=== PATIENT | male | born 1955 | race Caucasian/White ===

== ENCOUNTER 2016-09-11 10:20 | Inpatient (IN) | payer OTHER ==
[~2016-09-11] VITALS: Ht 172.7 cm; Wt 88.5 kg
[~2016-09-11 10:20] MED LIST: ALBUTEROL0.09 MG/A1 INH; ATORVASTATIN CA40 MG PO; AUGMENTIN 875-1 EACH PO; BENTYL10 M1 PO; CHOLESTYRAMINE L4 GM PO; CIALIS20 M1; DILAUDID2 M1 PO; GABAPENTIN100 MG; GABAPENTIN600 M1 PO; GABAPENTIN600 MG PO; HYDROMORPHONE HC2 M1 PO; IMODIUM A-D2 M1 PO; LIPITOR40 M1 PO; LISINOPRIL10 MG PO; LISINOPRIL20 M1 PO; LISINOPRIL20 MG PO; MULTIPLE VITAM1 EAC2 PO; MULTIVITAMIN1 TAB PO; NEURONTIN600 MG PO; PERCOCET 10-321 EACH PO; PERCOCET 325 MG1 TA2 PO; PREDNISONE10 MG PO; PRINIVIL 5MG5 MG; PROMETHAZINE HC25 M3 PO; ROBITUSSIN W/CO10 ML PO; STRATTERA80 MG PO; TESSALON PERLE100 MG PO; TOPAMAX 100MG100 MG PO; TOPAMAX100 M1 PO; TOPAMAX25 MG; TOPIRAMATE100 MG PO; TRAZODONE HCL150 MG PO; TRAZODONE HCL300 M1 PO; TRAZODONE150 MG PO; TRAZODONE50 MG PO; VALIUM10 M1 PO; VIAGRA100 M1; ZITHROMAX Z-PA250 M1 PO; ZOFRAN4 M2 PO; ZOLPIDEM TARTRA10 M1 PO
--- NOTE | 2016-09-11 10:27 | NUR ---
PT PRESENTS TO ER FOR SHARP ABDOMINAL PAIN THAT HAS BEEN ON AN OFF SINCE SATURDAY. PT ALSO C/O OF DIARRHEA AND NAUSEA SINCE YESTERDAY. PT STATES HE HAS A HX OF DIVERTICULITIS AND IS CONCERNED HE MIGHT HAVE A BLOCKAGE PT CURRENTLY BEING TREATED FOR PROSTATE CANCER.
--- NOTE | 2016-09-11 11:16 | NUR ---
APPRECIATE TRIAGE NOTE. PT AMBULATORY TO ROOM 16. PA STUDENT TO BEDSIDE FOR EVAL.
--- NOTE | 2016-09-11 11:29 | ED GI/GU/ABDOMINAL COMPLAINT ---
History of Present Illness General Chief Complaint: Abdominal Pain/Flank Pain Stated Complaint: ABD PAIN X 5 DAYS Source: patient, family Exam Limitations: no limitations Vital Signs & Intake/Output Vital Signs & Intake/Output Vital Signs Date Time Temp Pulse Resp B/P Pulse O2 O2 Flow FiO2 Ox Delivery Rate 09/11 1604 97.7 77 18 157/82 96 Room Air 09/11 1402 97.7 89 18 111/66 96 Room Air 09/11 1028 97.0 93 20 123/86 98 Room Air Allergies Coded Allergies: No Known Allergies (09/11/16) Reconcile Medications Atorvastatin Calcium (Lipitor) 40 MG TABLET 1 TAB PO DAILY CHOLESTEROL ( Reported) Gabapentin 600 MG TABLET 2 TAB PO TID NERVE PAIN (Reported) Lisinopril 20 MG TABLET 1 TAB PO DAILY BP (Reported) Trazodone HCl 300 MG TABLET 1 TAB PO QPM SLEEP (Reported) Zolpidem Tartrate 10 MG TABLET 1 TAB PO QPM PRN SLEEP (Reported) Triage Note: PT PRESENTS TO ER FOR SHARP ABDOMINAL PAIN THAT HAS BEEN ON AN OFF SINCE SATURDAY. PT ALSO C/O OF DIARRHEA AND NAUSEA SINCE YESTERDAY. PT STATES HE HAS A HX OF DIVERTICULITIS AND IS CONCERNED HE MIGHT HAVE A BLOCKAGE Triage Nurses Notes Reviewed? 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 Pain is sharp and stabbing and nonradiating. Palpation and movement makes it worse. Positive nausea and dry heaving but no vomiting. Denies taking anything at home to help with pain. No recent travel or sick contacts. Per her roommate he had a tactile fever last night. He reports that he was constipated initially before the pain started and then the diarrhea started last night. Approximately 7 episodes of loose brown stool that is watery. Denies blood in the stool. Denies any exposure to the flu. Past History Travel History Traveled to [place] past 21 day No Medical History Any Pertinent Medical History? see below for history Neurological: NONE EENT: NONE Cardiovascular: hypertension, hyperlipidemia Respiratory: NONE Gastrointestinal: colonoscopy in 2015- 2 tubular adenomas, random biopsies were negative for microscopic colitis Hepatic: NONE Renal: NONE Musculoskeletal: PROST. 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 No Review of Systems Review of Systems Constitutional: Reports: no symptoms. Comments Review of systems: See HPI, All other systems negative. Constitutional, no chills fever or weight loss HEENT: No visual changes no sore throat no congestion Cardiovascular: No chest pain ,palpitation Skin, no jaundice no rashes Respiratory: No dyspnea cough sputum or hemoptysis GI: no vomiting : No dysuria No hematuria Muscle skeletal: no back pain, no neck pain, Neurologic: No numbness no confusion Psych: No stress anxiety Immunology: No splenectomy or history of AIDS Physical Exam Physical Exam General Appearance: well developed/nourished, no apparent distress, alert, awake , comfortable Gastrointestinal: guarding, rebound, UPPER ACTIVE BOWEL SOUNDS THROUGHOUT Comments: Well-developed well-nourished person in no acute distress HEENT: Pupils equally round and reactive to light and accommodation. Nose is atraumatic. Neck: Normal inspection Back: Nontender, no CVA tenderness. Cardiovascular: Regular rate and rhythms no murmurs rubs or gallops, normal JVP Respiratory: Chest nontender. No respiratory distress.breath sounds clear to auscultation bilaterally Abdomen: Slightly distended, tenderness to palpation in the left lower quadrant, positive guarding and rebound tenderness. Midline surgical scar going through umbilicus, also a centimeter old surgical scar in the right lower quadrant. No palpable mass. 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 Left lower leg prosthesis. Neuro: Alert oriented x3 Skin: No appreciable rash on exposed skin, skin is warm and dry. Psych: Mood and affect is normal, memory and judgment is normal. Core Measures ACS in differential dx? No Severe Sepsis Present: No Septic Shock Present: No Progress Differential Diagnosis: DIVERTICULITIS, DIVERTICULOSIS, CONSTIPATION, METASTASIS , SMALL BOWEL OBSTRUCTION, COLITIS, INFLUENZA Plan of Care: Orders Procedure Date/time Status Patient Data 09/[address] in observation 09/11 1714 Active Add-on Test (ER Only) 09/11 1713 Active LACTIC ACID 09/11 1456 Complete LIPASE 09/11 1142 Complete AMYLASE 09/11 1142 Complete URINALYSIS 09/11 1131 Complete LACTIC ACID 09/11 1131 Complete COMPREHENSIVE METABOLIC PANEL 09/11 1131 Complete CBC WITHOUT DIFFERENTIAL 09/11 1131 Complete Current Medications Sig/Anthony Start time Last Medication Dose Stop Time Status Admin Morphine Sulfate 4 MG ONCE ONE 09/11 1145 CAN (Morphine) 09/11 1146 Laboratory Tests 09/11/16 1536: Lactic Acid 0.9 09/11/16 1431: Lactic Acid Cancelled 09/11/16 1222: Urine Color YEL, Urine Clarity CLEAR, Urine pH 6.5, Ur Specific [place] 1.010, Urine Protein NEG, Urine Ketones NEG, Urine Nitrite NEG, Urine Bilirubin NEG, Urine Urobilinogen 0.2, Ur Leukocyte Esterase NEG, Ur Microscopic EXAM NOT REQUIRED, Urine Hemoglobin NEG, Urine Glucose NEG 09/11/16 1142: Anion Gap 9, Estimated GFR > 60, BUN/Creatinine Ratio 29.1 H, Glucose 116 H, Lactic Acid 0.9, Calcium 9.4, Total Bilirubin 0.5, AST 24, ALT 38, Alkaline Phosphatase 55, Total Protein 6.7, Albumin 3.8, Globulin 2.9, Albumin/Globulin Ratio 1.3, Amylase 70, Lipase 74, CBC w Diff NO MAN DIFF REQ, RBC 4.63 L, MCV 80.7, MCH 26.9 L, RDW 13.9, MPV 9.4, Gran % 69.3, Lymphocytes % 20.4 L, Monocytes % 7.5, Eosinophils % 2.5, Basophils % 0.3, Absolute Granulocytes 5.4, Absolute Lymphocytes 1.6, Absolute Monocytes 0.6, Absolute Eosinophils 0.2, Absolute Basophils 0, PUBS MCHC 33.3 Diagnostic Imaging: Viewed by Me: CT Scan. Discussed w/RAD: CT Scan. Radiology Impression: PATIENT: TAYLOR MCCABE JR PRESENT AGE: 61 PATIENT ACCOUNT NO: [id number] : 56 LOCATION: [facility] ORDERING PHYSICIAN: QUOC DEUTSCH SERVICE DATE: 09/11/16 EXAM TYPE: CAT - CT ABD & PELVIS W IV CONTRAST EXAMINATION: CT ABDOMEN AND PELVIS WITH CONTRAST CLINICAL INFORMATION: Left lower quadrant abdominal pain. Evaluate for small bowel obstruction or diverticulitis. COMPARISON: CT of abdomen pelvis from 02/09/2016. TECHNIQUE: Multidetector volumetric imaging was performed of the abdomen and pelvis before and after the IV administration of 94 mL of of Optiray 320 intravenous contrast. Sagittal and coronal reformatted images were obtained on the technologist's workstation. DLP: 594 mGy-cm. FINDINGS: LUNG BASES: Cardiomegaly and coronary artery atherosclerotic calcification. No pulmonary edema or pleural effusion. The patchy inflammatory/infectious opacities of the lung bases on 02/09/2016 have subsequently resolved. LIVER, GALLBLADDER, AND BILIARY TREE: Liver has normal size and contour. There are a few scattered hypodense foci of < 6 mm size that are likely cysts. No suspicious hepatic lesion or intrahepatic bile duct dilatation. Gallbladder is normal. PANCREAS: There is atrophy with partial fatty replacement of the pancreas. No pancreatic ductal dilatation or peripancreatic edema. SPLEEN: Unremarkable. ADRENAL GLANDS: Unremarkable. KIDNEYS AND URETERS: Kidneys enhance symmetrically and there is no hydronephrosis or perinephric edema. A 0.4 cm calyceal stone is present within the upper pole of the left kidney. There are a few small bilateral renal cortical cysts. The ureters are normal in caliber. BLADDER: No acute findings. No bladder calculi. GASTROINTESTINAL TRACT: Loops of bowel are normal in size. There are diverticula of the distal descending and sigmoid colon without diverticulitis. An intact rectosigmoid anastomosis is present within the pelvis. No ascites or pneumoperitoneum. ABDOMINAL WALL: There is midline mesh from prior ventral hernia repair. No recurrent hernia. There is possible tethering of small bowel to the mesh. Small bowel is closely juxtaposed to the mesh on this exam as well as on the prior exam of 02/09/2016. LYMPH NODES: No pathologic sized lymph nodes within the abdomen or pelvis. VASCULAR: There is extensive atherosclerotic calcification of the abdominal aorta and iliac arteries without aneurysm. Inferior vena cava is normal. The splenic, mesenteric , portal and hepatic veins are patent. PELVIC VISCERA: Prostate gland is unremarkable. No pelvic free fluid. OSSEOUS STRUCTURES: No aggressive bone lesions. No acute findings within the chronically degenerated lumbar spine. At L5-S1, there is chronic vacuum disc degeneration, discogenic vertebral sclerosis , disc bulge and osteophyte formation. IMPRESSION: 1. Colonic diverticulosis without diverticulitis. 2. Small bowel remains closely juxtaposed to the mesh in the midline abdominal wall. Although there might be tethering of small bowel to the mesh, there is no acute small bowel inflammation or obstruction. 3. 0.4 cm nonobstructing calyceal stone is present within the upper pole of the left kidney., PATIENT: TAYLOR MCCABE JR PRESENT AGE: 61 PATIENT ACCOUNT NO: [id number] : 56 LOCATION: [facility] ORDERING PHYSICIAN: QUOC DEUTSCH SERVICE DATE: 09/11/16 EXAM TYPE: US - US-ABD/PELV ORGAN DOPPLER EXAMINATION: US ABDOMEN AND PELVIS CLINICAL INFORMATION: Severe lower abdominal pain. COMPARISON: CT of abdomen pelvis from 09/11/2016. TECHNIQUE: Sonographic imaging of the left lower quadrant was performed through the region of pain using a linear 9 MHz transducer. FINDINGS: Deep to the examined left lower abdominal wall, there is nondilated small bowel measuring up to 2 cm diameter. The fish technologist reports that the evaluation was suboptimal due to patient discomfort and patient movement during the test. The visualized small bowel in the left abdomen showed no mural edema or hyperemia on color Doppler imaging. No free fluid within the abdominal cavity. IMPRESSION: No acute sonographic findings in the region of patient's pain. DICTATED BY: LISA STEPHENS MD DATE/TIME DICTATED:09/11/161553 SOCIAL WORK NURSE:TOMMIE DATE/ TIME TRANSCRIBED:09/11/161553 CONFIDENTIAL, DO NOT COPY WITHOUT APPROPRIATE AUTHORIZATION. <Electronically signed in Other Vendor System> SIGNED BY: LISA STEPHENS MD 09/11/16 4789 Initial ED EKG: none Comments: 09/11/2016 11:43:33 AM patient appears uncomfortable, vital stable, patient does have significant tenderness in left lower quadrant with moderate guarding and rebound tenderness present. Patient will go for CT abdomen TO RULE OUT SBO secondary to history of SBO one year ago. Patient medicated with Dilaudid at patient request. Patient reports that morphine doesn't work. IV fluids 1 L initiated. 4 mg Zofran given for nausea. 09/11/2016 2:13:58 PM at this time patient still feeling significant pain in the left lower quadrant despite negative CT scan. Patient was informed of all lab work results. Spoke with regarding this patient. He is recommending that we consult with the surgical physician industrial hire sales assistant to come and evaluate the patient. With patient requiring excessive doses of IV pain medication in small tethering of bowel on CT scan. No signs of SBO. 09/11/2016 6:07:36 PM patient is still requiring IV pain medications to control pain. Patient will be admitted for intractable pain. Departure Departure Time of Disposition: 172 Disposition: STILL A PATIENT Condition: Stable Clinical Impression Primary Impression: Intractable abdominal pain Secondary Impressions: Superficial thrombophlebitis Qualifiers: Superficial thrombophlebitis-Involved body area: other site Qualified Code: I80.8 - Phlebitis and thrombophlebitis of other sites Referrals: KELLI SILVA MD (PCP/Family) Departure Forms: Customer Survey General Discharge Information Observation Note Spoke With: KELLI SILVA MD Physician Advisor Notified: TIMOTEO ANDERSON,SAMIA Cedillo Patient In: Non-ED OBS Care Area Rationale for Observation: My rational for observation is as follows . Patient requiring several doses of IV pain medication, IV anti-inflammatories, warm compresses, serial abdominal exams. Discharged at this time medically harmful.
[2016-09-11 11:53] LABS: ABSOLUTE BASOPHIL COUNT 0 /CUMM (0.0-0.2); ABSOLUTE EOSINOPHIL COUNT 0.2 /CUMM (0.0-0.7); ABSOLUTE GRANULOCYTE CT 5.4 /CUMM (1.4-6.5); ABSOLUTE LYMPH COUNT 1.6 /CUMM (1.2-3.4); ABSOLUTE MONOCYTE COUNT 0.6 /CUMM (0.10-0.60); BASOPHIL % 0.3 % (0.0-2.0); EOSINOPHIL % 2.5 % (0-5); GRANULOCYTE % 69.3 % (42.2-75.2); HEMATOCRIT 37.3 % (42-52); MEAN CORPUSCULAR HGB 26.9 PG (27.0-31.0); MEAN CORPUSCULAR HGB CONC 33.3 G/DL (33.0-37.0); MEAN CORPUSCULAR VOLUME 80.7 FL (80.0-94.0); MEAN PLATELET VOLUME 9.4 FL (7.4-10.4); PLATELET COUNT 170 /CUMM (130-400); RBC DISTRIBUTION WIDTH 13.9 % (11.5-14.5); RED BLOOD CELL CT 4.63 /CUMM (4.70-6.10); WHITE BLOOD CELL COUNT 7.7 /CUMM (4.8-10.8)
--- NOTE | 2016-09-11 11:55 | NUR ---
IV ESTABLISHED #20 TO . MEDICATED PER EMAR.
--- NOTE | 2016-09-11 12:05 | NUR ---
PT REPORTS SHARP STABBING PAIN TO LLQ. PT UNABLE TO LAY STILL ON STRETCHER MOANING IN PAIN. SECOND DOSE OF DILAUDID 1MG ADMINISTERED AT THIS TIME. PT REPORTS RELIEF FROM SHARP STABBING PAIN. PT AWAITING LAB RESULTS FOR CAT SCAN.
--- NOTE | 2016-09-11 12:28 | NUR ---
URINE TRIO SENT.
--- NOTE | 2016-09-11 13:06 | NUR ---
PT TO CAT SCAN VIA STRETCHER.
--- NOTE | 2016-09-11 13:39 | CT SCAN REPORT ---
EXAMINATION: CT ABDOMEN AND PELVIS WITH CONTRAST CLINICAL INFORMATION: Left lower quadrant abdominal pain. Evaluate for small bowel obstruction or diverticulitis. COMPARISON: CT of abdomen pelvis from 02/09/2016. TECHNIQUE: Multidetector volumetric imaging was performed of the abdomen and pelvis before and after the IV administration of 94 mL of of Optiray 320 intravenous contrast. Sagittal and coronal reformatted images were obtained on the technologist's workstation. DLP: 594 mGy-cm. FINDINGS: LUNG BASES: Cardiomegaly and coronary artery atherosclerotic calcification. No pulmonary edema or pleural effusion. The patchy inflammatory/infectious opacities of the lung bases on 02/09/2016 have subsequently resolved. LIVER, GALLBLADDER, AND BILIARY TREE: Liver has normal size and contour. There are a few scattered hypodense foci of < 6 mm size that are likely cysts. No suspicious hepatic lesion or intrahepatic bile duct dilatation. Gallbladder is normal. PANCREAS: There is atrophy with partial fatty replacement of the pancreas. No pancreatic ductal dilatation or peripancreatic edema. SPLEEN: Unremarkable. ADRENAL GLANDS: Unremarkable. KIDNEYS AND URETERS: Kidneys enhance symmetrically and there is no hydronephrosis or perinephric edema. A 0.4 cm calyceal stone is present within the upper pole of the left kidney. There are a few small bilateral renal cortical cysts. The ureters are normal in caliber. BLADDER: No acute findings. No bladder calculi. GASTROINTESTINAL TRACT: Loops of bowel are normal in size. There are diverticula of the distal descending and sigmoid colon without diverticulitis. An intact rectosigmoid anastomosis is present within the pelvis. No ascites or pneumoperitoneum. ABDOMINAL WALL: There is midline mesh from prior ventral hernia repair. No recurrent hernia. There is possible tethering of small bowel to the mesh. Small bowel is closely juxtaposed to the mesh on this exam as well as on the prior exam of 02/09/2016. LYMPH NODES: No pathologic sized lymph nodes within the abdomen or pelvis. VASCULAR: There is extensive atherosclerotic calcification of the abdominal aorta and iliac arteries without aneurysm. Inferior vena cava is normal. The splenic, mesenteric, portal and hepatic veins are patent. PELVIC VISCERA: Prostate gland is unremarkable. No pelvic free fluid. OSSEOUS STRUCTURES: No aggressive bone lesions. No acute findings within the chronically degenerated lumbar spine. At L5-S1, there is chronic vacuum disc degeneration, discogenic vertebral sclerosis, disc bulge and osteophyte formation. IMPRESSION: 1. Colonic diverticulosis without diverticulitis. 2. Small bowel remains closely juxtaposed to the mesh in the midline abdominal wall. Although there might be tethering of small bowel to the mesh, there is no acute small bowel inflammation or obstruction. 3. 0.4 cm nonobstructing calyceal stone is present within the upper pole of the left kidney.
--- NOTE | 2016-09-11 13:57 | NUR ---
PT COMPLAINING OF SHARP PAIN RETURNING TO LLQ. PT LAYING ON LEFT SIDE CLUTCHING ABDOMEN. MEDICATED WITH DILAUDID 1MG PER EMAR. GET MCCORMACK TO BEDSIDE TO DISCUSS RESULTS AND POC.
--- NOTE | 2016-09-11 14:17 | NUR ---
SURGICAL PA TO BEDSIDE FOR EVAL.
--- NOTE | 2016-09-11 14:53 | NUR ---
GET MCCORMACK TO BEDSIDE TO DISCUSS RESULTS AND POC. PT WILL GO TO US FOR FURTHER IMAGING. PT AGREEABLE TO PLAN OF CARE AT THIS TIME.
--- NOTE | 2016-09-11 15:08 | NUR ---
PT TO US VIA STRETCHER.
--- NOTE | 2016-09-11 15:24 | NUR ---
PT RETURN FROM US VIA STRETCHER.
--- NOTE | 2016-09-11 15:45 | NUR ---
REPEAT LACTIC DRAWN AND SENT BY THIS MST
--- NOTE | 2016-09-11 16:06 | ULTRASOUND REPORT ---
EXAMINATION: US ABDOMEN AND PELVIS CLINICAL INFORMATION: Severe lower abdominal pain. COMPARISON: CT of abdomen pelvis from 09/11/2016. TECHNIQUE: Sonographic imaging of the left lower quadrant was performed through the region of pain using a linear 9 MHz transducer. FINDINGS: Deep to the examined left lower abdominal wall, there is nondilated small bowel measuring up to 2 cm diameter. The vascular ultrasound technologist reports that the evaluation was suboptimal due to patient discomfort and patient movement during the test. The visualized small bowel in the left abdomen showed no mural edema or hyperemia on color Doppler imaging. No free fluid within the abdominal cavity. IMPRESSION: No acute sonographic findings in the region of patient's pain.
--- NOTE | 2016-09-11 16:10 | NUR ---
PT MEDICATED WITH TORADOL 30MG IV AND BENADRYL 25MG IV FOR C/O ITCHING WITH TORADOL. PT LYING IN STRETCHER COMPLAINING OF SHARP GRIPPING PAIN TO LLQ THAT HAS GOTTEN WORSE DEPSITE ALL ADMINISTERED PAIN MEDICATIONS. GET MCCORMACK AWARE OF PT COMPLAINTS OF PAIN, AWAITING RESULTS FROM US TO DETERMINE SOURCE OF PT PAIN.
--- NOTE | 2016-09-11 16:46 | NUR ---
GET MCCORMACK TO BEDSIDE TO DISCUSS US RESULTS AND POC. PT AGREEABLE TO STAY FOR OBSERVATION AT THIS TIME.
--- NOTE | 2016-09-11 17:21 | NUR ---
PT REQUESTING MORE DILAUDID AT THIS TIME, GET MCCORMACK AWARE.
--- NOTE | 2016-09-11 18:28 | NUR ---
HOUSE STAFF TO BEDSIDE FOR EVAL.
--- NOTE | 2016-09-11 18:34 | History & Physical ---
See Addendum AMANDA MARTIN 09/11/16 1833: General Information and HPI MD Statement: I have seen and personally examined TAYLOR MCCABE JR and documented this H&P. The patient is a 61 year old M who presented with a patient stated chief complaint of Source of Information: patient History of Present Illness: Mr Mckeon is a 61 yr old man is known to be in her usual state of health until 5 d ago. He has a past medical history of Prostate cancer(dx 2016) currently radiation therapy, diverticulitis, colon resection. Recent admission to [place] for SBO. He came to the hospital w/ a chief concern of abdominal pain , loose stool x 5 days. As per the pt, he had abdominal pain located in the left lower segment of the abdomen, no radiation, severity progressed 5/10-->10/10, relieved on taking NSAID, intermittent. Asscoiated w/ nausea. Had 7 episodes of loose stools last night, w/ no elizabeth or brbpr. Has taken high dose of advil for the last 5 days. No urinary changes. No palpitations, chest pain or SOB. Allergies/Medications Allergies: Coded Allergies: No Known Allergies (09/11/16) Home Med list Atorvastatin Calcium (Lipitor) 40 MG TABLET 1 TAB PO DAILY CHOLESTEROL ( Reported) Gabapentin 600 MG TABLET 2 TAB PO TID NERVE PAIN (Reported) Lisinopril 20 MG TABLET 1 TAB PO DAILY BP (Reported) Trazodone HCl 300 MG TABLET 1 TAB PO QPM SLEEP (Reported) Zolpidem Tartrate 10 MG TABLET 1 TAB PO QPM PRN SLEEP (Reported) Past History Travel History Traveled to [place] past 21 day No Medical History Neurological: NONE EENT: NONE Cardiovascular: hypertension, hyperlipidemia Respiratory: NONE Gastrointestinal: colonoscopy in 2015- 2 tubular adenomas, random biopsies were negative for microscopic colitis Hepatic: NONE Renal: NONE Musculoskeletal: PROST. 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 Psychosocial History Who Do You Live With? Roommate Services at Home: None Primary Language: Ukrainian Functional Ability Ambulation: Crutch Sexual History Past Sexual History Unobtainable at this time Review of Systems Review of Systems Constitutional: Reports: see HPI. EENTM: Denies: icterus. Cardiovascular: Denies: edema, orthopena, palpitations, peripheral edema. Respiratory: Denies: cough, short of breath. GI: Reports: abdominal pain, diarrhea, nausea. Denies: constipation, melena, bloody stool, changes in stool, vomiting. Genitourinary: Denies: dysuria. Musculoskeletal: Denies: back pain, joint pain. Exam & Diagnostic Data Last 24 Hrs of Vital Signs/I&O Vital Signs Date Time Temp Pulse Resp B/P Pulse O2 O2 Flow FiO2 Ox Delivery Rate 09/11 2001 97.8 94 18 147/97 98 Room Air Room Air 09/11 1922 97.6 77 18 99 Room Air 09/11 1604 97.7 77 18 157/82 96 Room Air 09/11 1402 97.7 89 18 111/66 96 Room Air 09/11 1028 97.0 93 20 123/86 98 Room Air Intake & Output 09/11 1600 09/11 0800 09/11 0000 Intake Total 1000 Output Total Balance 1000 Intake, IV 1000 Patient 195 lb Weight Physical Exam General Appearance Alert, Oriented X3, Cooperative Skin No Rashes, surgical scar on the abdomen HEENT Atraumatic, PERRLA, EOMI Neck No JVD, No thryomegaly Lymphatic Cervical nl Cardiovascular Regular Rate, Normal S1, Normal S2, No Murmurs Lungs Normal Air Movement Abdomen Normal Bowel Sounds, Soft, No Masses, tenderness Neurological Normal Speech, Normal Tone, Sensation Intact, Cranial Nerves 3-12 NL, Reflexes 2+ Extremities No Clubbing, No Cyanosis, Normal Pulses, aka left leg Vascular Normal Pulses Assessment/Plan Assessment: He is a middle aged man w/ a PMH of prostate cancer on radiotherapy, diverticulitis, previous GI surgery is being evaluated for severe abdominal pain. At the time of admission- vitals Temp 97, AK 94, RR 20, BP 123/86. Lab findings indicated- WBC 7.7, Hb 12.4, platelets 170, Sodium 140, K 5.4(elevated), BUN 23( slightly elevated sec to dehydration or upper gi bleed sec to advil use), Sr. Cr 1.1( h/o ckd). LA 0.9. Radiological findings- CT abdomen did not show diverticulitis; Small bowel dextaposed tethering to the mesh(likely adhesion ? ) , and a 0.4 cm non calyceal stone in the kidney. Last colonscopy did not show any malignancy. Admssion diagnosis: 1. Diverticulits 2. Abdominal obstruction sec to adhesions 3. R/o Mesenteric ischemia Below is the problem list and plan: 1. Abdominal pain- Pain management w/ dialudid. Avoid NSAID. Guiac stool. npo. Surgical evaluation, if the mesh tethering would have to managed surgically. LA is normal, and no cardiac history, yet mesenteric ischemia need to be ruled out. 2. Pain management- Gabapentin 1200mg q8. Re-evualate the need for more pain medications. 3. NPO and surgical consult in the am. 4. DvT prophylaxis- lovenox. As Ranked By This Provider Problem List: 1. Abdominal pain Core Measures/Miscellaneous Acute Coronary Syndrome ACS Diagnosis: No Cerebrovascular Accident CVA/TIA Diagnosis: No Congestive Heart Failure CHF Diagnosis: No Venous Thromboembolism VTE Risk Factors: Age > 40, Cancer/chemo/oth therapy VTE Prophylaxis Ordered Inpt: Pharm- Lovenox No Mech VTE prophylaxis d/t: No contraindications No VTE Pharm Prophylaxis d/t: No contraindications VTE Diagnosis: No VTE Type: NONE VTE Confirmed by (Test): NONE Severe Sepsis Severe Sepsis Present: No Septic Shock Septic Shock Present: No Miscellaneous Documentation Attending Case Discussed With: KELLI SILVA MD Primary Care Physician: KELLI SILVA MD Patient sees these Specialists unknown Level of Patient Care: General Medicine WILSONJANA 09/11/16 7489: Resident Review Statement Resident Statement: examined this patient, discussed with internal grinder, agreed with internal grinder Other Findings: Patient is 61 year iold male with pmh OF PROSTRATE CANCER, PANCREATIC CANCER ON RADITION THERAPY 7TH CYCLE, HTN, 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 patient states the pain worsned on saturday evening. He reports to feeling nauseous since this morning, and had 8 episodes of brownish stools since last night. No vomiting. Had colonoscopy in 2014 was significant for poplys. Patient has a history of hernia repair with mesh and abdominal surgeries for diverticulitis. Patient says he has been taking advil since saturday. He is on industrial dose of gabapentin and trazodone, confirmed with previous administration as inpatient. Patient had CT abdomen in ER, negative for any perforation, he was evaluated by surgical PA in ER, no impending signs of perforation right now but will place a formal consult. Will start patient of 2 mg q4prn of dilaudid, give him NS @ 100cc/hour he has not eaten since yesterday. Patient will be continued on his home meds for neuropathic pain, HTN, HLD etc. Will continue serial abdominal exams. QTC is 449, so can give zofran for nausea. DVT ppx alps and sc lovenox patient os full code.
--- NOTE | 2016-09-11 18:42 | NUR ---
PT IS GOING TO ROOM 204-1
--- NOTE | 2016-09-11 19:49 | NUR ---
NEW LINE ESTABLISHED TO RF. NS HUNG PER EMAR. DILAUDID ADMINISTERED PER EMAR.
--- NOTE | 2016-09-11 20:07 | NUR ---
TO BEDSIDE FOR EVAL.
--- NOTE | 2016-09-11 20:16 | PN- Att Addend ---
Attending Addendum Attending Brief Note 61 year old male kept in observation for intractable abdominal pain needing IV meds. Had labs scans and surgical evaluation. Current Medications Sig/Anthony Start time Last Medication Dose Stop Time Status Admin Atorvastatin Calcium 40 MG DAILY@1700 09/12 1700 AC (Lipitor) Enoxaparin Sodium 40 MG DAILY 09/12 1000 AC (Lovenox) Gabapentin 1,200 MG Q8 09/11 2199 AC (Neurontin) Trazodone HCl 300 MG AT BEDTIME 09/11 2199 AC (Desyrel) Hydromorphone HCl 2 MG Q4P PRN 09/11 1914 AC (Dilaudid) Ketorolac 30 MG Q8P PRN 09/11 1914 AC Tromethamine (Toradol) Zolpidem Tartrate 10 MG QPM PRN 09/11 1914 AC (Ambien) Lisinopril 20 MG DAILY 09/11 1908 AC (Prinivil) Morphine Sulfate 4 MG ONCE ONE 09/11 1145 CAN (Morphine) 09/11 1146 Laboratory Tests 09/11 09/11 09/11 1536 1431 1222 Chemistry Lactic Acid (0.7 - 2.1 mmol/L) 0.9 Cancelled Urines Urine Color (YEL,AMB,STR) YEL Urine Clarity (CLEAR) CLEAR Urine pH (5.0 - 8.0) 6.5 Ur Specific [place] (1.001 - 1.035) 1.010 Urine Protein (NEG,<30 MG/DL) NEG Urine Ketones (NEG) NEG Urine Nitrite (NEG) NEG Urine Bilirubin (NEG) NEG Urine Urobilinogen (0.1 - 1.0 EU/dl) 0.2 Ur Leukocyte Esterase (NEG) NEG Ur Microscopic EXAM NOT REQUIRED Urine Hemoglobin (NEG) NEG Urine Glucose (N MG/DL) NEG 09/11 1142 Chemistry Sodium (137 - 145 mmol/L) 140 Potassium (3.5 - 5.1 mmol/L) 5.4 H Chloride (98 - 107 mmol/L) 104 Carbon Dioxide (22 - 30 mmol/L) 27 Anion Gap (5 - 16) 9 BUN (9 - 20 mg/dL) 32 H Creatinine (0.7 - 1.2 mg/dL) 1.1 Estimated GFR (>60 ml/min) > 60 BUN/Creatinine Ratio (7 - 25 %) 29.1 H Glucose (65 - 99 mg/dL) 116 H Lactic Acid (0.7 - 2.1 mmol/L) 0.9 Calcium (8.4 - 10.2 mg/dL) 9.4 Total Bilirubin (0.2 - 1.3 mg/dL) 0.5 AST (17 - 59 U/L) 24 ALT (21 - 72 U/L) 38 Alkaline Phosphatase (< 127 U/L) 55 Total Protein (6.3 - 8.2 g/dL) 6.7 Albumin (3.5 - 5.0 g/dL) 3.8 Globulin (1.9 - 4.2 gm/dL) 2.9 Albumin/Globulin Ratio (1.1 - 2.2 %) 1.3 Amylase (30 - 110 U/L) 70 Lipase (23 - 300 U/L) 74 Hematology CBC w Diff NO MAN DIFF REQ WBC (4.8 - 10.8 /CUMM) 7.7 RBC (4.70 - 6.10 /CUMM) 4.63 L Hgb (14.0 - 18.0 G/DL) 12.4 L Hct (42 - 52 %) 37.3 L MCV (80.0 - 94.0 FL) 80.7 MCH (27.0 - 31.0 PG) 26.9 L RDW (11.5 - 14.5 %) 13.9 Plt Count (130 - 400 /CUMM) 170 MPV (7.4 - 10.4 FL) 9.4 Gran % (42.2 - 75.2 %) 69.3 Lymphocytes % (20.5 - 51.1 %) 20.4 L Monocytes % (1.7 - 9.3 %) 7.5 Eosinophils % (0 - 5 %) 2.5 Basophils % (0.0 - 2.0 %) 0.3 Absolute Granulocytes (1.4 - 6.5 /CUMM) 5.4 Absolute Lymphocytes (1.2 - 3.4 /CUMM) 1.6 Absolute Monocytes (0.10 - 0.60 /CUMM) 0.6 Absolute Eosinophils (0.0 - 0.7 /CUMM) 0.2 Absolute Basophils (0.0 - 0.2 /CUMM) 0 PUBS MCHC (33.0 - 37.0 G/DL) 33.3
--- NOTE | 2016-09-11 20:17 | NUR ---
REPORT GIVEN TO JUS SILVERMAN. [facility] CALLED FOR PT TRANSPORT.
[2016-09-11 20:59] VITALS: BP 152/108
[2016-09-12] VITALS: BP 174/82
--- NOTE | 2016-09-12 05:45 | PN- Housestaff ---
Subjective Follow-up For: Abdominal pain Subjective: The patient was comfortable this morning. Vitals remained stable overnight. He had fever, MAXIMUM TEMPERATURE 100.7 this morning. Pain was inadequately controlled with the current pain regimen. Contacted the surgical PDA and the surgeon's office for the patient to be reevaluated today. Review of Systems Constitutional: Reports: see HPI. Objective Last 24 Hrs of Vital Signs/I&O Vital Signs Date Time Temp Pulse Resp B/P Pulse O2 O2 Flow FiO2 Ox Delivery Rate 09/12 0000 98.8 85 20 174/82 95 Room Air 09/119 98.3 80 20 152/108 96 09/11 2016 97.8 94 18 147/97 09/11 2001 97.8 94 18 147/97 98 Room Air Room Air 09/11 1922 97.6 77 18 99 Room Air 09/11 1604 97.7 77 18 157/82 96 Room Air 09/11 1402 97.7 89 18 111/66 96 Room Air 09/11 1028 97.0 93 20 123/86 98 Room Air Intake & Output 09/12 0800 09/12 0000 09/11 1600 Intake Total 360 1000 Output Total 250 Balance 110 1000 Intake, IV 120 1000 Intake, Oral 240 Number 0 Bowel Movements Output, Urine 250 Patient 195 lb 195 lb Weight Physical Exam General Appearance: No Acute Distress Other Physical Findings: General Exam: AAOx3, No acute distress, Skin: No rashes, no breakdown HEENT: PERRLA, EOMI Neck: Supple, No JVD No cervical lymphadenopathy CVS: Reg Rate, Normal S1,S2, No MGR Resp: Normal air entry, no ronchi/rales Abdomen: Soft, tenderness left lower quadrant, Normal Bowel Sounds Neuro: Normal Speech, Strength 5/5 b/l x 4 extremities, Sensation intact, CN III -XII NL, Reflexes 2+ Extremities: No cyanosis, pedal edema Current Medications: Current Medications Sig/Anthony Start time Last Medication Dose Route Stop Time Status Admin Atorvastatin Calcium 40 MG DAILY@1700 09/12 1700 AC PO Diphenhydramine HCl 25 MG ONCE ONE 09/11 1930 DC 09/11 IV 09/11 1930 1610 Diphenhydramine HCl 0 .STK-MED ONE 09/11 1556 DC .ROUTE Diphenhydramine HCl 0 .STK-MED ONE 09/11 1555 DC .ROUTE Enoxaparin Sodium 40 MG DAILY 09/12 1000 AC SC Gabapentin 1,200 MG Q8 09/11 2200 AC 09/11 PO 2145 Hydromorphone HCl 0 .STK-MED ONE 09/11 1942 DC .ROUTE Hydromorphone HCl 0 .STK-MED ONE 09/11 1921 DC .ROUTE Hydromorphone HCl 2 MG Q4P PRN 09/11 1915 AC 09/12 IV 0149 Hydromorphone HCl 1 MG ONCE ONE 09/11 1845 DC 09/11 IV 09/11 1846 1945 Hydromorphone HCl 1 MG ONCE ONE 09/11 1745 DC 09/11 IV 09/11 1746 1749 Hydromorphone HCl 0 .STK-MED ONE 09/11 1743 DC .ROUTE Hydromorphone HCl 1 MG ONCE ONE 09/11 1430 DC 09/11 IV 09/11 1431 1433 Hydromorphone HCl 0 .STK-MED ONE 09/11 1429 DC .ROUTE Hydromorphone HCl 1 MG ONCE ONE 09/11 1345 DC 09/11 IV 09/11 1346 1356 Hydromorphone HCl 0 .STK-MED ONE 09/11 1336 DC .ROUTE Hydromorphone HCl 0 .STK-MED ONE 09/11 1202 DC .ROUTE Hydromorphone HCl 1 MG ONCE ONE 09/11 1200 DC 09/11 IV 09/11 1201 1205 Hydromorphone HCl 0 .STK-MED ONE 09/11 1147 DC .ROUTE Hydromorphone HCl 1 MG ONCE ONE 09/11 1145 DC 09/11 IV 09/11 1146 1154 Ketorolac 30 MG Q8P PRN 09/11 1915 AC Tromethamine IV Ketorolac 0 .STK-MED ONE 09/11 1550 DC Tromethamine .ROUTE Ketorolac 30 MG ONCE ONE 09/11 1530 DC 09/11 Tromethamine IV 09/11 1531 1609 Lisinopril 20 MG DAILY 09/11 1909 AC 09/11 PO 2017 Morphine Sulfate 4 MG ONCE ONE 09/11 1145 CAN IV 09/11 1146 Ondansetron HCl 0 .STK-MED ONE 09/11 1147 DC .ROUTE Ondansetron HCl 4 MG ONCE ONE 09/11 1145 DC 09/11 IV 09/11 1146 1154 Sodium Chloride 1,000 ML Q10H 09/11 1900 AC 09/11 IV 1945 Sodium Chloride 1,000 ML BOLUS ONE 09/11 1145 DC 09/11 IV 09/11 1344 1154 Trazodone HCl 300 MG AT BEDTIME 09/11 2200 AC 09/11 PO 2144 Zolpidem Tartrate 10 MG QPM PRN 09/11 1915 AC PO Last 24 Hrs of Lab/Julio Results Last 24 Hrs of Labs/Mics: Laboratory Tests 09/11/16 1536: Lactic Acid 0.9 09/11/16 1431: Lactic Acid Cancelled 09/11/16 1222: Urine Color YEL, Urine Clarity CLEAR, Urine pH 6.5, Ur Specific [place] 1.010, Urine Protein NEG, Urine Ketones NEG, Urine Nitrite NEG, Urine Bilirubin NEG, Urine Urobilinogen 0.2, Ur Leukocyte Esterase NEG, Ur Microscopic EXAM NOT REQUIRED, Urine Hemoglobin NEG, Urine Glucose NEG 09/11/16 1142: Anion Gap 9, Estimated GFR > 60, BUN/Creatinine Ratio 29.1 H, Glucose 116 H, Lactic Acid 0.9, Calcium 9.4, Total Bilirubin 0.5, AST 24, ALT 38, Alkaline Phosphatase 55, Total Protein 6.7, Albumin 3.8, Globulin 2.9, Albumin/Globulin Ratio 1.3, Amylase 70, Lipase 74, CBC w Diff NO MAN DIFF REQ, RBC 4.63 L, MCV 80.7, MCH 26.9 L, RDW 13.9, MPV 9.4, Gran % 69.3, Lymphocytes % 20.4 L, Monocytes % 7.5, Eosinophils % 2.5, Basophils % 0.3, Absolute Granulocytes 5.4, Absolute Lymphocytes 1.6, Absolute Monocytes 0.6, Absolute Eosinophils 0.2, Absolute Basophils 0, PUBS MCHC 33.3 Assessment/Plan Assessment: Mr Mckeon is a 61 yr old man is known to be in her usual state of health until 5 d ago. He has a past medical history of Prostate cancer(dx 2016) currently radiation therapy, diverticulitis, colon resection. Recent admission to [place] for SBO. He came to the hospital w/ a chief concern of abdominal pain , loose stool x 5 days. He is a middle aged man w/ a PMH of prostate cancer on radiotherapy, diverticulitis, previous GI surgery is being evaluated for severe abdominal pain. At the time of admission- vitals Temp 97, LA 94, RR 20, BP 123/86. Lab findings indicated- WBC 7.7, Hb 12.4, platelets 170, Sodium 140, K 5.4(elevated), BUN 23( slightly elevated sec to dehydration or upper gi bleed sec to advil use), Sr. Cr 1.1( h/o ckd). LA 0.9. Radiological findings- CT abdomen did not show diverticulitis; Small bowel dextaposed tethering to the mesh(likely adhesion ? ) , and a 0.4 cm non calyceal stone in the kidney. Last colonscopy did not show any malignancy. Admssion diagnosis: 1. Diverticulits 2. Abdominal obstruction sec to adhesions 3. Superficial thrombophlebitis of abdominal wall Below is the problem list and plan: 1. Abdominal pain- Pain management w/ dialudid. As the patient has continued abdominal pain and fever, it would be prudent to daley culture the patient. After speaking to the surgery, it was found out that the patient might have had superficial thrombophlebitis of abdominal wall. NSAIDs and warm compresses at this time. Also was suggested that the patient get CT abdomen with by mouth contrast. 2. Pain management- Gabapentin 1200mg q8. Re-evualate the need for more pain medications. Problem List: 1. Superficial thrombophlebitis 2. Intractable abdominal pain Pain Ratin Pain Location: Abdomen Pain Goal: Pain 4 or less Pain Plan: Lawsonor did Gabapentin Tomorrow's Labs & Rationales: CBC DEP
[2016-09-12 08:01] VITALS: BP 150/71
--- NOTE | 2016-09-12 08:18 | NUR ---
NURSING NOTE: ORAL TEMP 100.7 HR 102, KATLYN SLATE SPLITTING SUPERVISOR 172 CAlled and made aware, awaiting further orders.
[2016-09-12 08:23] LABS: ABSOLUTE BASOPHIL COUNT 0 /CUMM (0.0-0.2); ABSOLUTE EOSINOPHIL COUNT 0.2 /CUMM (0.0-0.7); ABSOLUTE GRANULOCYTE CT 6.5 /CUMM (1.4-6.5); ABSOLUTE LYMPH COUNT 0.8 /CUMM (1.2-3.4); ABSOLUTE MONOCYTE COUNT 0.5 /CUMM (0.10-0.60); BASOPHIL % 0.2 % (0.0-2.0); EOSINOPHIL % 2.5 % (0-5); GRANULOCYTE % 81.4 % (42.2-75.2); HEMATOCRIT 36.1 % (42-52); MEAN CORPUSCULAR HGB 26.9 PG (27.0-31.0); MEAN CORPUSCULAR VOLUME 81.5 FL (80.0-94.0); MEAN PLATELET VOLUME 9.6 FL (7.4-10.4); PLATELET COUNT 143 /CUMM (130-400); RBC DISTRIBUTION WIDTH 13.5 % (11.5-14.5); RED BLOOD CELL CT 4.43 /CUMM (4.70-6.10)
--- NOTE | 2016-09-12 12:08 | NUR ---
NURSING NOTE: PT STILL C/O / PAIN 1 HOUR AFTER DILAUDID 2MG IV GIVEN. PT REQUESTING ICE CHIPS, LAYING IN BED TALKING WITH A FRIEND. DEPARTMENT MANAGER KATLYN CALLED AND TO COME SEE PT. PT UPDATED, CONT TO MONITOR,
--- NOTE | 2016-09-12 12:23 | NUR ---
NURSING NOTE, PT CHANGED TO A FULL ADMISSION FROM 23 HOUR HOLD PER MD ORDER. HOSPITALITY AIDE AWARE. SEE ADMISSION PAPERWORK
--- NOTE | 2016-09-12 14:22 | Admission Certification ---
Admission Certification Certification Statement - As attending physician, I certify that at the time of - admission, based on clinical presentation, severity of - symptoms, need for further diagnostic testing and - therapeutic interventions, and risk of adverse outcomes - without in-hospital treatment, in my clinical assessment, - this patient requires an acute hospital stay for a minimum - of two nights or longer. I have also considered psychsocial - factors such as support system, advanced age, financial - issues, cognitive issues, and failed out-patient treatments, - past re-admission history, safety of patient, and lack of - compliance as applicable. Specific rationale supporting this admission is: Intractable abdominal pain and now with fever etiology to be determined
--- NOTE | 2016-09-12 14:24 | PN- Att Addend ---
Attending Addendum Attending Brief Note 61-year-old white male with recurrent abdominal pain very severe per patient originally was admitted for observation states even with the pain medication he still in the lot of "pain" patient developed a fever overnight, he was pancultured. His lactic acid was normal will have surgery evaluate the patient and follow the recommendations and try to manage the pain Current Medications Sig/Anthony Start time Last Medication Dose Route Stop Time Status Admin Acetaminophen 650 MG ONCE ONE 09/12 0830 DC 09/12 PO 09/12 0831 0830 Atorvastatin Calcium 40 MG DAILY@1700 09/12 1700 AC PO Diphenhydramine HCl 25 MG ONCE ONE 09/11 1930 DC 09/11 IV 09/11 1931 1610 Diphenhydramine HCl 0 .STK-MED ONE 09/11 1556 DC .ROUTE Diphenhydramine HCl 0 .STK-MED ONE 09/11 1555 DC .ROUTE Enoxaparin Sodium 40 MG DAILY 09/12 1000 AC 09/12 SC 0925 Gabapentin 1,200 MG Q8 09/11 2200 AC 09/12 PO 1347 Hydromorphone HCl 1 MG ONCE ONE 09/12 1230 DC 09/12 IV 09/12 1231 1225 Hydromorphone HCl 0 .STK-MED ONE 09/11 1942 DC .ROUTE Hydromorphone HCl 0 .STK-MED ONE 09/11 192 DC .ROUTE Hydromorphone HCl 2 MG Q4P PRN 09/11 1914 AC 09/12 IV 1103 Hydromorphone HCl 1 MG ONCE ONE 09/11 1845 DC 09/11 IV 09/11 1846 1945 Hydromorphone HCl 1 MG ONCE ONE 09/11 1745 DC 09/11 IV 09/11 1746 1749 Hydromorphone HCl 0 .STK-MED ONE 09/11 1743 DC .ROUTE Hydromorphone HCl 1 MG ONCE ONE 09/11 1430 DC 09/11 IV 09/11 1431 1433 Hydromorphone HCl 0 .STK-MED ONE 09/11 1429 DC .ROUTE Ketorolac 30 MG Q8P PRN 09/11 1914 AC 09/12 Tromethamine IV 0925 Ketorolac 0 .STK-MED ONE 09/11 1550 DC Tromethamine .ROUTE Ketorolac 30 MG ONCE ONE 09/11 1530 DC 09/11 Tromethamine IV 09/11 1531 1609 Lisinopril 20 MG DAILY 09/11 1909 AC 09/12 PO 0925 Patient Medication 1 ED .STK-MED ONE 09/12 1406 [place] Teaching ED 09/12 1407 Sodium Chloride 1,000 ML Q10H 09/11 190 AC 09/12 IV 1348 Trazodone HCl 300 MG AT BEDTIME 09/11 2200 AC 09/11 PO 2144 Zolpidem Tartrate 10 MG QPM PRN 09/11 191 PO Laboratory Tests 09/12/16 0620: Anion Gap 9, Estimated GFR > 60, BUN/Creatinine Ratio 19.1, CBC w Diff NO MAN DIFF REQ, RBC 4.43 L, MCV 81.5, MCH 26.9 L, RDW 13.5, MPV 9.6, Gran % 81.4 H, Lymphocytes % 9.9 L, Monocytes % 6.0, Eosinophils % 2.5, Basophils % 0.2, Absolute Granulocytes 6.5, Absolute Lymphocytes 0.8 L, Absolute Monocytes 0.5, Absolute Eosinophils 0.2, Absolute Basophils 0, PUBS MCHC 33.0 09/11/16 1536: Lactic Acid 0.9 09/11/16 1431: Lactic Acid Cancelled Microbiology Date/Time Procedure - Status Source Growth 09/12 844 Blood Culture - RECD BLOOD 09/12 844 Blood Culture - RECD BLOOD 09/12 820 Clostridium difficile Toxin A & B - COLB STOOL 09/12 820 Stool Culture - COLB STOOL Vital Signs Date Time Temp Pulse Resp B/P Pulse O2 O2 Flow FiO2 Ox Delivery Rate 09/12 924 92 148/78 09/12 921 99.6 09/12 921 99.6 09/12 0830 100.7 09/12 0801 100.7 102 20 150/71 93 Room Air Intake & Output 09/12 1600 Intake Total 800 Output Total 850 Balance -50 Intake, IV 800 Intake, Oral 0 Number 0 Bowel Movements Output, Urine 850 Patient 195 lb Weight
--- NOTE | 2016-09-12 14:59 | NUR ---
NURSING NOTE: PT MEDICATED WITH IV DILAUDID FOR 06/04. PT ASKING FOR IV DILAUDID "EVERY 3 HOURS" CHIEF PETROLEUM ENGINEER KATLYN AWARE, ABD US ORDERED,PT UDATED, NPO
[2016-09-12 16:11] VITALS: BP 104/82
--- NOTE | 2016-09-12 16:19 | Cons- General Surgery ---
See Addendum AUSTEN FUNEZ 09/12/16 1556: General Information and HPI Consulting Request Date of Consult: 09/12/16 Requested By: KELLI ANTONIO MD Reason for Consult: Abdominal pain Source of Information: patient Exam Limitations: no limitations History of Present Illness: Mr. Jain is a 61-year-old male with past medical history of hypertension hypercholesterolemia depression colon cancer with resection presents with a three-day history of worsening abdominal pain into the emergency room yesterday. After exam and review of CAT scan and discussion with emergency room physician bookkeeper assistant it was conveyed to both the medical staff and the patient of this patient's diagnosis, left abdominal wall superficial thrombo-phlebitis, and that the patient can be discharged with local heat to the area and NSAID therapy, and follow-up with Dr. Mar as needed. Unbeknownst to the surgical staff at the time the patient was admitted to the medical service for intractable pain. Today at the request of Dr. Antonio, the patient was evaluated again for similar and unresolving symptoms. Now the patient states that the pain hasn't really changed. However treatment recommendation stays above have not been initiated. He denies nausea vomiting or change in bladder or bowel habits. Allergies/Medications Allergies: Coded Allergies: No Known Allergies (09/11/16) Home Med List: Atorvastatin Calcium (Lipitor) 40 MG TABLET 1 TAB PO DAILY CHOLESTEROL ( Reported) Gabapentin 600 MG TABLET 2 TAB PO TID NERVE PAIN (Reported) Lisinopril 20 MG TABLET 1 TAB PO DAILY BP (Reported) Trazodone HCl 300 MG TABLET 1 TAB PO QPM SLEEP (Reported) Zolpidem Tartrate 10 MG TABLET 1 TAB PO QPM PRN SLEEP (Reported) Past History Medical History Blood Transfusion Hx: Yes Neurological: NONE EENT: NONE Cardiovascular: hypertension, hyperlipidemia Respiratory: NONE Gastrointestinal: colonoscopy in 2015- 2 tubular adenomas, random biopsies were negative for microscopic colitis Hepatic: NONE Renal: NONE Musculoskeletal: PROST. 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 Psychosocial History Where Do You Live? Home Who Do You Live With? Roommate Services at Home: None Primary Language: Malawian Smoking Status: Former Smoker Functional Ability Ambulation: Crutch Exam & Diagnostic Data Vital Signs and I&O Vital Signs Date Time Temp Pulse Resp B/P Pulse O2 O2 Flow FiO2 Ox Delivery Rate 09/12 924 92 148/78 09/12 921 99.6 09/12 921 99.6 09/12 0830 100.7 09/12 0801 100.7 102 20 150/71 93 Room Air 09/12 0000 98.8 85 20 174/82 95 Room Air 09/11 2058 98.3 80 20 152/108 96 09/11 2016 97.8 94 18 147/97 09/11 2001 97.8 94 18 147/97 98 Room Air Room Air 09/11 1921 97.6 77 18 99 Room Air Intake & Output 09/12 1600 09/12 0800 09/12 0000 09/11 1600 09/11 0800 09/11 0000 Intake Total 800 182 295 6096 Output Total 850 1000 250 Balance -50 -545 004 7896 Intake, IV 800 446 033 4967 Intake, Oral 0 240 Number 0 0 0 Bowel Movements Output, Urine 850 1000 250 Patient 195 lb 195 lb 195 lb Weight Physical Exam General Appearance: moderate distress Head: atraumatic, normal appearance Eyes: Bilateral: PERRL. Respiratory: normal breath sounds Cardiovascular: regular rate/rhythm Gastrointestinal: normal bowel sounds, soft, tenderness, left lower quadrant demonstrates significant tenderness to superficial palpation, the abdomen is not distended, the abdomen is soft, flat, no evidence of peritonitis. There is also a palpable cord superficially in the left lower anterior abdomen Extremities: normal inspection, left BKA Last 24 Hours of Labs: Laboratory Tests 09/12 06 Chemistry Sodium (137 - 145 mmol/L) 140 Potassium (3.5 - 5.1 mmol/L) 4.5 Chloride (98 - 107 mmol/L) 106 Carbon Dioxide (22 - 30 mmol/L) 25 Anion Gap (5 - 16) 9 BUN (9 - 20 mg/dL) 21 H Creatinine (0.7 - 1.2 mg/dL) 1.1 Estimated GFR (>60 ml/min) > 60 BUN/Creatinine Ratio (7 - 25 %) 19.1 Hematology CBC w Diff NO MAN DIFF REQ WBC (4.8 - 10.8 /CUMM) 8.0 RBC (4.70 - 6.10 /CUMM) 4.43 L Hgb (14.0 - 18.0 G/DL) 11.9 L Hct (42 - 52 %) 36.1 L MCV (80.0 - 94.0 FL) 81.5 MCH (27.0 - 31.0 PG) 26.9 L RDW (11.5 - 14.5 %) 13.5 Plt Count (130 - 400 /CUMM) 143 MPV (7.4 - 10.4 FL) 9.6 Gran % (42.2 - 75.2 %) 81.4 H Lymphocytes % (20.5 - 51.1 %) 9.9 L Monocytes % (1.7 - 9.3 %) 6.0 Eosinophils % (0 - 5 %) 2.5 Basophils % (0.0 - 2.0 %) 0.2 Absolute Granulocytes (1.4 - 6.5 /CUMM) 6.5 Absolute Lymphocytes (1.2 - 3.4 /CUMM) 0.8 L Absolute Monocytes (0.10 - 0.60 /CUMM) 0.5 Absolute Eosinophils (0.0 - 0.7 /CUMM) 0.2 Absolute Basophils (0.0 - 0.2 /CUMM) 0 PUBS MCHC (33.0 - 37.0 G/DL) 33.0 Assessment/Plan Assessment/Plan Mr. Jain is 61-year-old male who presents with a 3-4 day history of left lower anterior abdominal pain. This case was discussed with Dr. Mar and felt as though based on the CAT scan findings and symptomatology at the patient's symptoms are consistent with Mondor's disease(superficial thrombophlebitis). As discussed with the physician bookkeeper assistant in the emergency room last night treatment should be consistent with local heat and NSAID therapy. Plan This information was relayed to Dr. Glez and Dr. Antonio who understood these recommendations. Per Dr. Mar local heat to the area should be initiated and NSAID therapy should be begin with ibuprofen 800 mg 3 times a day with food. Where available for repeat consult if symptoms do not improve. Consult Acknowledgment - Thank you for your consult request. REJI MAR MD 09/12/16 6195: Assessment/Plan Consult Acknowledgment - Thank you for your consult request. Attending MD Review Statement Attending Statement Attending MD Statement: discuss w/resident/PA/APPLICATION PENETRATION TESTER, reviewed images Attending Assessment/Plan: I was consulted yesterday while patient was in ER. PA evaluation was undertaken and communication of physical exam findings relayed. We were under the impression that he was to be discharged from the ER. I was unaware that he was admitted to the hospital. On initial assessment, it was felt that his symptoms were more superficial in nature and possibly related to superficial thrombophlebitis of the abdominal wall, as there is what appears to be a vein in the area that was thought to be palpable by the PA. I recommended a doppler u/s of the area. Unfortunately, the u/s technologist performed the wrong exam. A deep abdominal doppler was performed, not superficial. Regardless, the patient's pain has persisted and now he has low grade fevers. Although initial CT did not show any intraabdominal inflammatory process, it would be reasonable to repeat it. Recommend repeat CT with oral contrast. IV contrast should be avoided given close chronology to last IV contrast dose.
--- NOTE | 2016-09-12 21:50 | CT SCAN REPORT ---
EXAMINATION: CT ABDOMEN AND PELVIS WITH CONTRAST CLINICAL INFORMATION: Intra-abdominal pathology, fever COMPARISON: None. TECHNIQUE: Multidetector volumetric imaging was performed from the superior aspect of the liver through the pubic symphysis following administration of oral contrast. Sagittal and coronal reformatted images were obtained on the technologist's workstation. FINDINGS: Minimal change the lung bases. Upper abdomen Liver and spleen are felt to be within normal limits. Region the pancreas is unremarkable. The adrenal glands are normal. Bowel pattern is nonobstructing. No free fluid. There is no bulky adenopathy here. Calcified aorta which appears nonaneurysmal. Kidneys in the early nephrographic phase. Nonobstructing calculus upper pole left kidney. Some subcentimeters areas in the kidneys may well represent evolving cysts. Impossible to characterize on this study. In the pelvis surgical sutures in the rectosigmoid distally. No acute finding. No free fluid. Some scattered diverticula disease. No evidence for diverticulitis. There is no bulky adenopathy here. Beginnings of a small fatty inguinal herniation on the left. IMPRESSION: No acute finding here. The bowel pattern is nonobstructive. No suspicious fluid collection.
[2016-09-13] VITALS: BP 142/84
--- NOTE | 2016-09-13 05:51 | PN- Housestaff ---
Subjective Follow-up For: 1. abdominal pain Subjective: The pt was comfortable. Still complains of abdominal pain. Pain well controlled. Vitals stable. Low grade temp 99.9. Review of Systems Constitutional: Reports: see HPI. Objective Last 24 Hrs of Vital Signs/I&O Vital Signs Date Time Temp Pulse Resp B/P Pulse O2 O2 Flow FiO2 Ox Delivery Rate 09/13 0000 98.8 86 20 142/84 98 Room Air 09/12 1611 98.1 86 20 104/82 93 09/12 0925 92 148/78 09/12 09 99.6 09/12 09 99.6 09/12 0830 100.7 09/12 0801 100.7 102 20 150/71 93 Room Air Intake & Output 09/13 0800 09/13 0000 09/12 1600 Intake Total 800 Output Total 400 300 850 Balance -400 -300 -50 Intake, IV 800 Intake, Oral 0 Number 0 Bowel Movements Output, Urine 400 300 850 Patient 195 lb Weight Physical Exam General Appearance: No Acute Distress Other Physical Findings: General Exam: AAOx3, No acute distress, Skin: No rashes, no breakdown HEENT: PERRLA, EOMI Neck: Supple, No JVD No cervical lymphadenopathy CVS: Reg Rate, Normal S1,S2, No MGR Resp: Normal air entry, no ronchi/rales Abdomen: Soft, tenderness + llq, Normal Bowel Sounds Neuro: Normal Speech, Strength 5/5 b/l x 4 extremities, Sensation intact, CN III -XII NL, Reflexes 2+ Extremities: No cyanosis, pedal edema Current Medications: Current Medications Sig/Anthony Start time Last Medication Dose Route Stop Time Status Admin Acetaminophen 650 MG ONCE ONE 09/12 0830 DC 09/12 PO 09/12 0831 0830 Atorvastatin Calcium 40 MG DAILY@1700 09/12 1700 AC 09/12 PO 1754 Enoxaparin Sodium 40 MG DAILY 09/12 1000 AC 09/12 SC 0925 Gabapentin 1,200 MG Q8 09/11 2200 AC 09/12 PO 2158 Hydromorphone HCl 2 MG Q3P PRN 09/12 1515 AC 09/13 IV 0349 Hydromorphone HCl 1 MG ONCE ONE 09/12 1230 DC 09/12 IV 09/12 1231 1225 Hydromorphone HCl 2 MG Q4P PRN 01/17 1915 DC 09/12 IV 1456 Ibuprofen 800 MG TID 09/12 1600 AC PO Ketorolac 30 MG Q8P PRN 09/11 191 DC 09/12 Tromethamine IV 0925 Lisinopril 20 MG DAILY 09/11 190 AC 09/12 PO 0925 Patient Medication 1 ED .STK-MED ONE 09/12 1406 SC Teaching ED 09/12 1407 Sodium Chloride 1,000 ML Q10H 09/11 190 AC 09/12 IV 2051 Trazodone HCl 300 MG AT BEDTIME 09/11 2200 AC 09/12 PO 2158 Zolpidem Tartrate 10 MG QPM PRN 09/11 1914 AC 09/12 PO 2352 Last 24 Hrs of Lab/Julio Results Last 24 Hrs of Labs/Mics: Laboratory Tests 09/12/16 0620: Anion Gap 9, Estimated GFR > 60, BUN/Creatinine Ratio 19.1, CBC w Diff NO MAN DIFF REQ, RBC 4.43 L, MCV 81.5, MCH 26.9 L, RDW 13.5, MPV 9.6, Gran % 81.4 H, Lymphocytes % 9.9 L, Monocytes % 6.0, Eosinophils % 2.5, Basophils % 0.2, Absolute Granulocytes 6.5, Absolute Lymphocytes 0.8 L, Absolute Monocytes 0.5, Absolute Eosinophils 0.2, Absolute Basophils 0, PUBS MCHC 33.0 Microbiology 09/13 0005 STOOL: Clostridium difficile Toxin A & B - RECD 09/13 0005 STOOL: Stool Culture - RECD 09/12 0745 BLOOD: Blood Culture - RECD 09/12 844 BLOOD: Blood Culture - RECD Assessment/Plan Assessment: Mr Mckeon is a 61 yr old man is known to be in her usual state of health until 5 d ago. He has a past medical history of Prostate cancer(dx 2016) currently radiation therapy, diverticulitis, colon resection. Recent admission to [place] for SBO. He came to the hospital w/ a chief concern of abdominal pain , loose stool x 5 days. He is a middle aged man w/ a PMH of prostate cancer on radiotherapy, diverticulitis, previous GI surgery is being evaluated for severe abdominal pain. Last colonscopy did not show any malignancy. Admssion diagnosis: 1. Superficial thrombophlebitis of abdominal wall Below is the problem list and plan: 1. Abdominal pain- Pain management w/ dialudid. After speaking to the surgery, it was found out that the patient might have had superficial thrombophlebitis of abdominal wall. NSAIDs and warm compresses at this time. Also was suggested that the patient get CT abdomen with by mouth contrast, which was negative for any GI pathology 2. Pain management- Gabapentin 1200mg q8. Re-evualate the need for more pain medications. Problem List: 1. SBO (small bowel obstruction) 2. Superficial thrombophlebitis Pain Ratin Pain Location: abd wall Pain Goal: Pain 4 or less Pain Plan: dialuadid Tomorrow's Labs & Rationales: none
[2016-09-13 07:58] VITALS: BP 150/70
[2016-09-13 08:30] LABS: ABSOLUTE BASOPHIL COUNT 0 /CUMM (0.0-0.2); ABSOLUTE EOSINOPHIL COUNT 0.2 /CUMM (0.0-0.7); ABSOLUTE GRANULOCYTE CT 7.7 /CUMM (1.4-6.5); ABSOLUTE LYMPH COUNT 0.7 /CUMM (1.2-3.4); ABSOLUTE MONOCYTE COUNT 0.6 /CUMM (0.10-0.60); BASOPHIL % 0 % (0.0-2.0); EOSINOPHIL % 1.7 % (0-5); GRANULOCYTE % 83.9 % (42.2-75.2); HEMATOCRIT 33.5 % (42-52); MEAN CORPUSCULAR HGB 27.2 PG (27.0-31.0); MEAN CORPUSCULAR HGB CONC 33.4 G/DL (33.0-37.0); MEAN CORPUSCULAR VOLUME 81.3 FL (80.0-94.0); MEAN PLATELET VOLUME 9.4 FL (7.4-10.4); PLATELET COUNT 131 /CUMM (130-400); RBC DISTRIBUTION WIDTH 13.6 % (11.5-14.5); RED BLOOD CELL CT 4.12 /CUMM (4.70-6.10); WHITE BLOOD CELL COUNT 9.2 /CUMM (4.8-10.8)
--- NOTE | 2016-09-13 09:02 | PN- Att Addend ---
Attending Addendum Attending Brief Note Patient still in pain. She had surgical 6 input and recommendations. Temp max was 99 9 results of the CAT scans noted and is being treated with an anti- inflammatory besides the pain medication and local heat which is supposed to treat the superficial phlebitis . We'll monitor today monitor temps continue treatments and if stable in a.m. then start disposition plans. Current Medications Sig/Anthony Start time Last Medication Dose Route Stop Time Status Admin Atorvastatin Calcium 40 MG DAILY@1700 09/12 1700 AC 09/12 PO 1754 Enoxaparin Sodium 40 MG DAILY 09/12 1000 AC 09/12 SC 0925 Gabapentin 1,200 MG Q8 09/11 2200 AC 09/13 PO 0646 Hydromorphone HCl 2 MG Q3P PRN 09/12 1515 AC 09/13 IV 0644 Hydromorphone HCl 1 MG ONCE ONE 09/12 1230 DC 09/12 IV 09/12 1231 1225 Hydromorphone HCl 2 MG Q4P PRN 09/11 1915 TX 09/12 IV 1456 Ibuprofen 800 MG TID 09/12 1600 AC PO Ketorolac 30 MG Q8P PRN 09/11 1915 TX 09/12 Tromethamine IV 0925 Lisinopril 20 MG DAILY 09/11 1909 09/12 PO 0925 Patient Medication 1 ED .STK-MED ONE 09/12 1406 TX Teaching ED 09/12 1407 Sodium Chloride 1,000 ML Q10H 09/11 1900 09/13 IV 0644 Trazodone HCl 300 MG AT BEDTIME 09/11 2200 09/12 PO 2158 Zolpidem Tartrate 10 MG QPM PRN 09/11 191 09/12 PO 2352 Laboratory Tests 09/13/16 0730: Anion Gap 10, Estimated GFR > 60, BUN/Creatinine Ratio 14.0, CBC w Diff Pending, WBC Pending, RBC Pending, Hgb Pending, Hct Pending, MCV Pending, MCH Pending, RDW Pending, Plt Count Pending, MPV Pending, Gran % Pending, Lymphocytes % Pending, Monocytes % Pending, Eosinophils % Pending, Basophils % Pending, Absolute Granulocytes Pending, Absolute Lymphocytes Pending, Absolute Monocytes Pending, Absolute Eosinophils Pending, Absolute Basophils Pending, PUBS MCHC Pending Microbiology Date/Time Procedure - Status Source Growth 09/13 0005 Clostridium difficile Toxin A & B - RECD STOOL 09/13 0005 Stool Culture - RECD STOOL Vital Signs Date Time Temp Pulse Resp B/P Pulse O2 O2 Flow FiO2 Ox Delivery Rate 09/13 0758 99.9 107 20 150/70 93 Room Air 09/13 0000 98.8 86 20 142/84 98 Room Air 09/12 1611 98.1 86 20 104/82 93 09/12 0925 92 148/78 09/12 0922 99.6 09/12 0922 99.6 Intake & Output 09/13 1600 09/13 0800 09/13 0000 Intake Total 800 Output Total 1150 300 Balance -350 -300 Intake, IV 800 Number 1 Bowel Movements Output, Urine 1150 300 Cultures are pending.
--- NOTE | 2016-09-13 11:31 | PN- General Surgery ---
Subjective Subjective: Patient still has focal LLQ pain but he thinks it is getting better. symptoms better controlled with hot pack. Objective Vital Signs and I&Os Vital Signs Date Time Temp Pulse Resp B/P Pulse O2 O2 Flow FiO2 Ox Delivery Rate 09/13 0951 78 146/80 09/13 0758 99.9 107 20 150/70 93 Room Air 09/13 0000 98.8 86 20 142/84 98 Room Air 09/12 1611 98.1 86 20 104/82 93 Intake & Output 09/13 1600 09/13 0800 09/13 0000 09/12 1600 09/12 0800 09/12 0000 Intake Total 800 800 800 360 Output Total 350 1150 115 342 8806 250 Balance -350 -350 -300 -50 -200 110 Intake, IV 800 800 800 120 Intake, Oral 0 240 Number 1 0 0 0 Bowel Movements Output, Urine 350 1150 981 852 4100 250 Patient 195 lb 195 lb Weight Physical Exam: Gen: looks well. alert. nad. sitting up and talking Heent: anicteric, perrl. eomi chest :nontender. normal respitory excursion and effort abd: soft, exquisite, pinpoint tendeness to left of umbilicus. no mass or hernia Current Medications: Current Medications Sig/Anthony Start time Last Medication Dose Route Stop Time Status Admin Atorvastatin Calcium 40 MG DAILY@1700 09/12 1700 AC 09/12 PO 1754 Enoxaparin Sodium 40 MG DAILY 09/12 1000 AC 09/13 SC 0951 Gabapentin 1,200 MG Q8 09/11 2200 AC 09/13 PO 0646 Hydromorphone HCl 2 MG Q3P PRN 09/12 1515 09/13 IV 0952 Hydromorphone HCl 1 MG ONCE ONE 09/12 1230 DC 09/12 IV 09/12 1231 1225 Hydromorphone HCl 2 MG Q4P PRN 09/11 191 DC 09/12 IV 1456 Ibuprofen 800 MG TID 09/12 1600 AC 09/13 PO 0951 Ketorolac 30 MG Q8P PRN 09/11 1914 DC 09/12 Tromethamine IV 0925 Lisinopril 20 MG DAILY 09/11 190 AC 09/13 PO 0951 Patient Medication 1 ED .STK-MED ONE 09/12 1406 DC Teaching ED 09/12 1407 Sodium Chloride 1,000 ML Q10H 09/11 1900 AC 09/13 IV 0644 Trazodone HCl 300 MG AT BEDTIME 09/110 AC 09/12 PO 2158 Zolpidem Tartrate 10 MG QPM PRN 09/11 191 AC 09/12 PO 2352 Results Last 48 Hours of Labs: Laboratory Tests 09/13 09/12 0730 0620 Chemistry Sodium (137 - 145 mmol/L) 140 140 Potassium (3.5 - 5.1 mmol/L) 4.5 4.5 Chloride (98 - 107 mmol/L) 104 106 Carbon Dioxide (22 - 30 mmol/L) 25 25 Anion Gap (5 - 16) 10 9 BUN (9 - 20 mg/dL) 14 21 H Creatinine (0.7 - 1.2 mg/dL) 1.0 1.1 Estimated GFR (>60 ml/min) > 60 > 60 BUN/Creatinine Ratio (7 - 25 %) 14.0 19.1 Hematology CBC w Diff NO MAN DIFF REQ NO MAN DIFF REQ WBC (4.8 - 10.8 /CUMM) 9.2 8.0 RBC (4.70 - 6.10 /CUMM) 4.12 L 4.43 L Hgb (14.0 - 18.0 G/DL) 11.2 L 11.9 L Hct (42 - 52 %) 33.5 L 36.1 L MCV (80.0 - 94.0 FL) 81.3 81.5 MCH (27.0 - 31.0 PG) 27.2 26.9 L RDW (11.5 - 14.5 %) 13.6 13.5 Plt Count (130 - 400 /CUMM) 131 143 MPV (7.4 - 10.4 FL) 9.4 9.6 Gran % (42.2 - 75.2 %) 83.9 H 81.4 H Lymphocytes % (20.5 - 51.1 %) 7.8 L 9.9 L Monocytes % (1.7 - 9.3 %) 6.6 6.0 Eosinophils % (0 - 5 %) 1.7 2.5 Basophils % (0.0 - 2.0 %) 0 L 0.2 Absolute Granulocytes (1.4 - 6.5 /CUMM) 7.7 H 6.5 Absolute Lymphocytes (1.2 - 3.4 /CUMM) 0.7 L 0.8 L Absolute Monocytes (0.10 - 0.60 /CUMM) 0.6 0.5 Absolute Eosinophils (0.0 - 0.7 /CUMM) 0.2 0.2 Absolute Basophils (0.0 - 0.2 /CUMM) 0 0 PUBS MCHC (33.0 - 37.0 G/DL) 33.4 33.0 09/11 09/11 09/11 1536 1431 1222 Chemistry Lactic Acid (0.7 - 2.1 mmol/L) 0.9 Cancelled Urines Urine Color (YEL,AMB,STR) YEL Urine Clarity (CLEAR) CLEAR Urine pH (5.0 - 8.0) 6.5 Ur Specific Hamer (1.001 - 1.035) 1.010 Urine Protein (NEG,<30 MG/DL) NEG Urine Ketones (NEG) NEG Urine Nitrite (NEG) NEG Urine Bilirubin (NEG) NEG Urine Urobilinogen (0.1 - 1.0 EU/dl) 0.2 Ur Leukocyte Esterase (NEG) NEG Ur Microscopic EXAM NOT REQUIRED Urine Hemoglobin (NEG) NEG Urine Glucose (N MG/DL) NEG 09/11 1142 Chemistry Sodium (137 - 145 mmol/L) 140 Potassium (3.5 - 5.1 mmol/L) 5.4 H Chloride (98 - 107 mmol/L) 104 Carbon Dioxide (22 - 30 mmol/L) 27 Anion Gap (5 - 16) 9 BUN (9 - 20 mg/dL) 32 H Creatinine (0.7 - 1.2 mg/dL) 1.1 Estimated GFR (>60 ml/min) > 60 BUN/Creatinine Ratio (7 - 25 %) 29.1 H Glucose (65 - 99 mg/dL) 116 H Lactic Acid (0.7 - 2.1 mmol/L) 0.9 Calcium (8.4 - 10.2 mg/dL) 9.4 Total Bilirubin (0.2 - 1.3 mg/dL) 0.5 AST (17 - 59 U/L) 24 ALT (21 - 72 U/L) 38 Alkaline Phosphatase (< 127 U/L) 55 Total Protein (6.3 - 8.2 g/dL) 6.7 Albumin (3.5 - 5.0 g/dL) 3.8 Globulin (1.9 - 4.2 gm/dL) 2.9 Albumin/Globulin Ratio (1.1 - 2.2 %) 1.3 Amylase (30 - 110 U/L) 70 Lipase (23 - 300 U/L) 74 Hematology CBC w Diff NO MAN DIFF REQ WBC (4.8 - 10.8 /CUMM) 7.7 RBC (4.70 - 6.10 /CUMM) 4.63 L Hgb (14.0 - 18.0 G/DL) 12.4 L Hct (42 - 52 %) 37.3 L MCV (80.0 - 94.0 FL) 80.7 MCH (27.0 - 31.0 PG) 26.9 L RDW (11.5 - 14.5 %) 13.9 Plt Count (130 - 400 /CUMM) 170 MPV (7.4 - 10.4 FL) 9.4 Gran % (42.2 - 75.2 %) 69.3 Lymphocytes % (20.5 - 51.1 %) 20.4 L Monocytes % (1.7 - 9.3 %) 7.5 Eosinophils % (0 - 5 %) 2.5 Basophils % (0.0 - 2.0 %) 0.3 Absolute Granulocytes (1.4 - 6.5 /CUMM) 5.4 Absolute Lymphocytes (1.2 - 3.4 /CUMM) 1.6 Absolute Monocytes (0.10 - 0.60 /CUMM) 0.6 Absolute Eosinophils (0.0 - 0.7 /CUMM) 0.2 Absolute Basophils (0.0 - 0.2 /CUMM) 0 PUBS MCHC (33.0 - 37.0 G/DL) 33.3 Recent Imaging Studies: Ct with oral contrast reviewed last evening. No inflammatory process of bowel. no obstruction. Assessment/Plan Assessment/Plan Persistent LLQ pain unclear etiology. No intraabdominal inflammatory process to explain on CT. No need for abx. 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 It is relatively uncommon and affects the chest wall more commonly. On initial CT, there is a large, thrombosed appearing vein at the point of exam tenderness. Since there is no other etiology of pain identified, would continue treatment with warm compresses and NSAIDS. OK to eat. Cont serial exam/wbc. will follow.
--- NOTE | 2016-09-13 14:51 | NUR ---
NURSING NOTE: PT LEFT FLOOR VIA STRETCHER WITH [facility] FOR [facility] [address]. PT AWAKE, A/OX3, DENIES PAIN, IV TO RFA INTACT. PAPERWORK SENT WITH PACKET. AWAIT RETURN TO FLOOR, WILL GIVE REPORT TO NEXT SHIFT RN. CONT TO MONITOR.
[2016-09-13 16:35] VITALS: BP 158/102
--- NOTE | 2016-09-13 20:59 | NUR ---
[id number] PATIENT ARRIVED TO THE FLOOR. ALERT AND ORIENTED X 3. ON ROOM AIR COMPUTER MECHANIC NOTIFIED ABOUT PATIENTS BLOOD PRESSURE. MEDICATION GIVEN FOR PAIN. WILL CONTINUE TO MONITOR
[2016-09-13 21:00] VITALS: BP 136/98
[2016-09-13 23:23] VITALS: BP 160/100
--- NOTE | 2016-09-14 00:36 | NUR ---
PT VERY ANXIOUS, CRYING AND IN PAIN. PAIN MEDICATIONS WITHOUT EFFECT. ENRRIQUE CRAWFORD NOTIFIED AND UP TO SEE PT. ORDERS RECEIVED FOR EXTRA DOSE OF DILAUDID, GIVEN PER ORDERS. PSYCH CONSULT ORDERED. PT REFUSING PASTORAL CARE AT THIS TIME. [facility]OMA THERAPY SUPPLIED, PT STARTING TO CALM DOWN AND FEEL SLIGHTLY BETTER. WILL CONTINUE TO MONITOR.
--- NOTE | 2016-09-14 05:51 | PN- Housestaff ---
Subjective Follow-up For: 1. abdominal pain Subjective: Pt was in mild distress this am, when I saw him this morning. BP was elevated this am, and Review of Systems Constitutional: Reports: see HPI. Objective Last 24 Hrs of Vital Signs/I&O Vital Signs Date Time Temp Pulse Resp B/P Pulse O2 O2 Flow FiO2 Ox Delivery Rate 09/13 2323 98.4 73 20 160/100 94 Room Air 09/13 2100 77 136/98 09/13 1635 98.4 70 20 158/102 98 09/13 0951 78 146/80 09/13 0758 99.9 107 20 150/70 93 Room Air Intake & Output 09/14 0800 09/14 0000 09/13 1600 Intake Total 500 1700 Output Total 334 233 3491 Balance -200 0 600 Intake, IV 800 Intake, Oral 500 900 Number 1 0 Bowel Movements Output, Urine 941 785 0824 Patient 195 lb Weight Physical Exam General Appearance: No Acute Distress Skin: No Rashes, No Breakdown HEENT: PERRLA, EOMI Neck: No JVD, No thryomegaly Lymphatic: Cervical nl Cardiovascular: Normal S1, Normal S2, No Murmurs Lungs: Normal Air Movement Abdomen: Normal Bowel Sounds, Soft, No Tenderness Neurological: Normal Tone, Sensation Intact, Cranial Nerves 3-12 NL, Reflexes 2+ Extremities: No Cyanosis, No Edema Current Medications: Current Medications Sig/Anthony Start time Last Medication Dose Route Stop Time Status Admin Atorvastatin Calcium 40 MG DAILY@1700 09/12 1700 AC 09/13 PO 1618 Calcium Carbonate 500 MG DAILY PRN 09/13 1845 AC PO Enoxaparin Sodium 40 MG DAILY 09/12 1000 AC 09/13 SC 0951 Gabapentin 1,200 MG Q8 09/11 2200 AC 09/14 PO 0534 Hydromorphone HCl 1 MG ONCE ONE 09/14 0030 DC 09/14 IV 09/14 0031 0028 Hydromorphone HCl 2 MG Q3P PRN 09/12 1515 AC 09/14 IV 0533 Ibuprofen 800 MG TID 09/12 1600 AC 09/13 PO 1617 Lisinopril 20 MG DAILY 09/11 1909 AC 09/13 PO 0951 Omeprazole 20 MG DAILY AC 09/13 1826 AC 09/14 PO 0533 Oxycodone/ 1 TAB Q4P PRN 09/13 1845 AC 01/20 Acetaminophen PO 0011 Sodium Chloride 1,000 ML Q10H 09/11 1900 DC 09/13 IV 0644 Trazodone HCl 300 MG AT BEDTIME 09/11 2200 AC 09/13 PO 2255 Zolpidem Tartrate 10 MG QPM PRN 09/11 1915 AC 09/13 PO 2255 Last 24 Hrs of Lab/Julio Results Last 24 Hrs of Labs/Mics: Laboratory Tests 09/13/16 0730: Anion Gap 10, Estimated GFR > 60, BUN/Creatinine Ratio 14.0, CBC w Diff NO MAN DIFF REQ, RBC 4.12 L, MCV 81.3, MCH 27.2, RDW 13.6, MPV 9.4, Gran % 83.9 H, Lymphocytes % 7.8 L, Monocytes % 6.6, Eosinophils % 1.7, Basophils % 0 L, Absolute Granulocytes 7.7 H, Absolute Lymphocytes 0.7 L, Absolute Monocytes 0.6, Absolute Eosinophils 0.2, Absolute Basophils 0, PUBS MCHC 33.4 Assessment/Plan Assessment: Mr Mckeon is a 61 yr old man is known to be in her usual state of health until 5 d ago. He has a past medical history of Prostate cancer(dx 2016) currently radiation therapy, diverticulitis, colon resection. Recent admission to [facility] [facility] for SBO. He came to the hospital w/ a chief concern of abdominal pain , loose stool x 5 days. He is a middle aged man w/ a PMH of prostate cancer on radiotherapy, diverticulitis, previous GI surgery is being evaluated for severe abdominal pain. Last colonscopy did not show any malignancy. Admssion diagnosis: 1. Superficial thrombophlebitis of abdominal wall Below is the problem list and plan: 1. Abdominal pain- Pain management w/ dialudid. After speaking to the surgery, it was found out that the patient might have had superficial thrombophlebitis of abdominal wall. NSAIDs and warm compresses at this time. Also was suggested that the patient get CT abdomen with by mouth contrast, which was negative for any GI pathology 2. Pain management- Gabapentin 1200mg q8. Re-evualate the need for more pain medications. Problem List: 1. Superficial thrombophlebitis Pain Ratin Pain Location: abd wall Pain Goal: Pain 4 or less Pain Plan: dilaudid Tomorrow's Labs & Rationales: cbc
[2016-09-14] MEDS ORDERED: IBUPROFEN800 M1 PO (05:57)
--- NOTE | 2016-09-14 05:58 | Patient Discharge Instructions ---
Discharge Instructions General Discharge Information You were seen/treated for: 1. abdominal wall vein inflammation Special Instructions: 1. please see your pcp within a week of discharge. 2. please see your surgeon within a week of discharge. Acute Coronary Syndrome Inclusion Criteria At DC or during hospital stay patient has or had the following: ACS DIAGNOSIS No Discharge Core Measures Meds if any: Prescribed or Continued at Discharge Meds if any: NOT Prescribed or Continued at Discharge Congestive Heart Failure Inclusion Criteria At DC or during hospital stay patient has or had the following: CHF DIAGNOSIS No Discharge Core Measures Meds if any: Prescribed or Continued at Discharge Meds if any: NOT Prescribed or Continued at Discharge Cerebrovascular accident Inclusion Criteria At DC or during hospital stay patient has or had the following: CVA/TIA Diagnosis No Discharge Core Measures Meds if any: Prescribed or Continued at Discharge Meds if any: NOT Prescribed or Continued at Discharge Venous thromboembolism Inclusion Criteria VTE Diagnosis No VTE Type NONE VTE Confirmed by (Test) NONE Discharge Core Measures - Per Current guidelines, there needs to be overlap - treatment for the first 5 days of Warfarin therapy. - If discharged on Warfarin prior to 5 days of - overlap therapy, the patient will need to be - assessed for post discharge needs including - *Post discharge parental anticoagulation - *Warfarin and/or parental anticoagulation education - *Follow up date to check INR post discharge At least 5 days overlap therapy as Inpatient No Meds if any: Prescribed or Continued at Discharge Note: Overlap Therapy is Warfarin and Anticoagulant Meds if any: NOT Prescribed or Continued at Discharge
[2016-09-14 07:39] VITALS: BP 180/100
--- NOTE | 2016-09-14 07:40 | NUR ---
NURSING NOTE: BP 180/100, HR 108, TEMP 99.2 ROOM AIR 92%, PT STILL C/O ABDOMINAL PAIN, THREAD ROLLER 172 CALLED AND MADE AWARE, WILL GIVE LISINOPRIL EARLY, CONT TO MONITOR.
[2016-09-14 07:49] VITALS: BP 180/100
--- NOTE | 2016-09-14 08:43 | NUR ---
NURSING NOTE: PT REFUSING TO GO TO [facility] FOR RADIATION. ARIELTAliyah DHALIWAL MADE AWARE. OLGA AT [facility] UPDATED.
[2016-09-14 09:13] VITALS: BP 180/80
--- NOTE | 2016-09-14 09:13 | NUR ---
NURSING NOTE: BP 180/80, HR 98, TEMP 99.9 BEAM BUILDER KATLYN 172 AWARE, CONT TO MONITOR. NO FURTHER ORDERS AT THIS TIME
[2016-09-14 09:25] LABS: ABSOLUTE BASOPHIL COUNT 0 /CUMM (0.0-0.2); ABSOLUTE EOSINOPHIL COUNT 0.1 /CUMM (0.0-0.7); ABSOLUTE GRANULOCYTE CT 8.1 /CUMM (1.4-6.5); ABSOLUTE LYMPH COUNT 0.5 /CUMM (1.2-3.4); ABSOLUTE MONOCYTE COUNT 0.5 /CUMM (0.10-0.60); BASOPHIL % 0.2 % (0.0-2.0); EOSINOPHIL % 0.9 % (0-5); GRANULOCYTE % 88.4 % (42.2-75.2); HEMATOCRIT 38.3 % (42-52); MEAN CORPUSCULAR HGB 27.1 PG (27.0-31.0); MEAN CORPUSCULAR HGB CONC 33.8 G/DL (33.0-37.0); MEAN CORPUSCULAR VOLUME 80.1 FL (80.0-94.0); MEAN PLATELET VOLUME 9.4 FL (7.4-10.4); PLATELET COUNT 142 /CUMM (130-400); RBC DISTRIBUTION WIDTH 12.9 % (11.5-14.5); RED BLOOD CELL CT 4.77 /CUMM (4.70-6.10)
--- NOTE | 2016-09-14 10:06 | NUR ---
NURSING NOTE: APRESOLINE ONE TIME GIVEN PER MD ORDER, WILL RCHECK BP 30-60MINUTES PER ASSOCIATE PROFESSOR OF PATHOLOGY. CONT TO MONIOTR
[2016-09-14 10:07] LABS: WHITE BLOOD CELL COUNT 9.2 /CUMM (4.8-10.8)
--- NOTE | 2016-09-14 10:32 | PN- Att Addend ---
Attending Addendum Attending Brief Note Patient laying in bed still states his in a lot of pain and had a bad night. His blood pressure was elevated this morning and needed a one-time dose of Apresoline will continue the analgesia try to switch to by mouth, continue the local heat and anti-inflammatories and monitor the blood pressure Current Medications Sig/Anthony Start time Last Medication Dose Route Stop Time Status Admin Amlodipine Besylate 5 MG DAILY 09/14 1000 CAN PO Atorvastatin Calcium 40 MG DAILY@1700 09/12 1700 AC 09/13 PO 1618 Calcium Carbonate 500 MG DAILY PRN 09/13 1845 AC PO Enoxaparin Sodium 40 MG DAILY 09/12 1000 AC 09/14 SC 0910 Gabapentin 1,200 MG Q8 09/11 2200 AC 09/14 PO 0534 Hydralazine HCl 25 MG ONCE ONE 09/14 0945 DC 09/14 PO 09/14 0946 1005 Hydromorphone HCl 1 MG ONCE ONE 09/14 0030 DC 09/14 IV 09/14 0031 0028 Hydromorphone HCl 2 MG Q3P PRN 09/12 1515 AC 09/14 IV 0910 Ibuprofen 800 MG TID 09/12 1600 AC 09/14 PO 0911 Lisinopril 20 MG DAILY 09/11 1909 AC 09/14 PO 0745 Omeprazole 20 MG DAILY AC 09/13 1826 AC 09/14 PO 0533 Oxycodone/ 1 TAB Q4P PRN 09/13 184 AC 09/14 Acetaminophen PO 0011 Sodium Chloride 1,000 ML Q10H 09/11 1900 MO 09/13 IV 0644 Trazodone HCl 300 MG AT BEDTIME 09/11 2199 AC 09/13 PO 2255 Zolpidem Tartrate 10 MG QPM PRN 09/11 191 AC 09/13 PO 2255 Laboratory Tests 09/14/16 0839: CBC w Diff NO MAN DIFF REQ, RBC 4.77, MCV 80.1, MCH 27.1, RDW 12.9, MPV 9.4, Gran % 88.4 H, Lymphocytes % 5.1 L, Monocytes % 5.4, Eosinophils % 0.9, Basophils % 0.2, Absolute Granulocytes 8.1 H, Absolute Lymphocytes 0.5 L, Absolute Monocytes 0.5, Absolute Eosinophils 0.1, Absolute Basophils 0, PUBS MCHC 33.8 Vital Signs Date Time Temp Pulse Resp B/P Pulse O2 O2 Flow FiO2 Ox Delivery Rate 09/14 1006 99.1 09/14 1005 99.1 09/14 1005 98 180/80 09/14 0913 99.9 98 20 180/80 94 Room Air 09/14 0911 99.9 09/14 0749 99.2 109 20 180/100 92 09/14 0745 108 180/100 09/14 0739 99.2 108 20 180/100 92 Room Air Intake & Output 09/14 1600 Intake Total Output Total Balance Number 1 Bowel Movements
[2016-09-14 11:00] VITALS: BP 150/80
--- NOTE | 2016-09-14 11:34 | PN- General Surgery ---
Subjective Subjective: BETTER. STILL HAVING PAIN. TRANSITION TO ORAL PAIN RX. EAGER TO GO HOME TOMORROW. Objective Vital Signs and I&Os Vital Signs Date Time Temp Pulse Resp B/P Pulse O2 O2 Flow FiO2 Ox Delivery Rate 09/14 1100 98.4 90 18 150/80 94 Room Air 09/14 1006 99.1 09/14 1005 99.1 09/14 1005 98 180/80 09/14 0913 99.9 98 20 180/80 94 Room Air 09/14 0911 99.9 09/14 0749 99.2 109 20 180/100 92 09/14 0745 108 180/100 09/14 0739 99.2 108 20 180/100 92 Room Air 09/13 2323 98.4 73 20 160/100 94 Room Air 09/13 2100 77 136/98 09/13 1635 98.4 70 20 158/102 98 Intake & Output 09/14 1600 09/14 0800 09/14 0000 09/13 1600 09/13 0800 09/13 0000 Intake Total 500 1700 800 Output Total 100 768 2883 1150 300 Balance -200 0 600 -350 -300 Intake, IV 800 800 Intake, Oral 500 900 Number 1 1 0 1 Bowel Movements Output, Urine 619 505 6007 1150 300 Patient 195 lb Weight Physical Exam: GEN; LOOKS WELL. NAD. A/OX3 HEENT; ANICTERIC, MMM, EOMI ABD; SOFT. TENDER LLQ. NO PERITONITIS. Current Medications: Current Medications Sig/Anthony Start time Last Medication Dose Route Stop Time Status Admin Amlodipine Besylate 5 MG DAILY 09/14 1000 CAN PO Atorvastatin Calcium 40 MG DAILY@1700 09/12 1700 AC 09/13 PO 1618 Calcium Carbonate 500 MG DAILY PRN 09/13 1845 AC PO Enoxaparin Sodium 40 MG DAILY 09/12 1000 AC 09/14 SC 0910 Gabapentin 1,200 MG Q8 09/11 2200 AC 09/14 PO 0534 Hydralazine HCl 25 MG ONCE ONE 09/14 0945 DC 09/14 PO 09/14 0946 1005 Hydromorphone HCl 6 MG Q4-6 PRN PRN 09/14 1045 AC PO Hydromorphone HCl 1 MG ONCE ONE 09/14 0030 DC 09/14 IV 09/14 0031 0028 Hydromorphone HCl 2 MG Q3P PRN 09/12 1515 DC 09/14 IV 0910 Ibuprofen 800 MG TID 09/12 1600 AC 09/14 PO 0911 Lisinopril 20 MG DAILY 09/11 1909 AC 09/14 PO 0745 Omeprazole 20 MG DAILY AC 09/13 1826 AC 09/14 PO 0533 Oxycodone/ 1 TAB Q4P PRN 09/13 1845 AC 09/14 Acetaminophen PO 0011 Sodium Chloride 1,000 ML Q10H 09/11 1900 DC 09/13 IV 0644 Trazodone HCl 300 MG AT BEDTIME 09/11 2199 AC 09/13 PO 2255 Zolpidem Tartrate 10 MG QPM PRN 09/11 191 AC 09/13 PO 2255 Results Last 48 Hours of Labs: Laboratory Tests 09/14 09/13 0839 0730 Chemistry Sodium (137 - 145 mmol/L) 140 Potassium (3.5 - 5.1 mmol/L) 4.5 Chloride (98 - 107 mmol/L) 104 Carbon Dioxide (22 - 30 mmol/L) 25 Anion Gap (5 - 16) 10 BUN (9 - 20 mg/dL) 14 Creatinine (0.7 - 1.2 mg/dL) 1.0 Estimated GFR (>60 ml/min) > 60 BUN/Creatinine Ratio (7 - 25 %) 14.0 Hematology CBC w Diff NO MAN DIFF REQ NO MAN DIFF REQ WBC (4.8 - 10.8 /CUMM) 9.2 9.2 RBC (4.70 - 6.10 /CUMM) 4.77 4.12 L Hgb (14.0 - 18.0 G/DL) 12.9 L 11.2 L Hct (42 - 52 %) 38.3 L 33.5 L MCV (80.0 - 94.0 FL) 80.1 81.3 MCH (27.0 - 31.0 PG) 27.1 27.2 RDW (11.5 - 14.5 %) 12.9 13.6 Plt Count (130 - 400 /CUMM) 142 131 MPV (7.4 - 10.4 FL) 9.4 9.4 Gran % (42.2 - 75.2 %) 88.4 H 83.9 H Lymphocytes % (20.5 - 51.1 %) 5.1 L 7.8 L Monocytes % (1.7 - 9.3 %) 5.4 6.6 Eosinophils % (0 - 5 %) 0.9 1.7 Basophils % (0.0 - 2.0 %) 0.2 0 L Absolute Granulocytes (1.4 - 6.5 /CUMM) 8.1 H 7.7 H Absolute Lymphocytes (1.2 - 3.4 /CUMM) 0.5 L 0.7 L Absolute Monocytes (0.10 - 0.60 /CUMM) 0.5 0.6 Absolute Eosinophils (0.0 - 0.7 /CUMM) 0.1 0.2 Absolute Basophils (0.0 - 0.2 /CUMM) 0 0 PUBS MCHC (33.0 - 37.0 G/DL) 33.8 33.4 Assessment/Plan Assessment/Plan ABDOMINAL PAIN UNCLEAR ETIOLOGY. TOLERATING DIET. PAIN MANAGEMENT PER PRIMARY TEAM. CONSIDER BENTYL NEEDED.
[2016-09-14 15:53] VITALS: BP 148/78
[2016-09-14 23:48] VITALS: BP 140/84
--- NOTE | 2016-09-15 06:50 | PN- Housestaff ---
Subjective Follow-up For: 1. abdominal pain Subjective: Patient was comfortable this morning., Better compared to yesterday. Still complains of abdominal pain 03/04, with no radiation. Uses warm compresses when needed. Complains of cough, productive. He wanted to see psychiatry, as an outpatient. Vitals were stable overnight. Blood pressure was adequately controlled with the current regimen. Review of Systems Constitutional: Reports: see HPI. Objective Last 24 Hrs of Vital Signs/I&O Vital Signs Date Time Temp Pulse Resp B/P Pulse O2 O2 Flow FiO2 Ox Delivery Rate 09/15 0000 92 Room Air 09/14 2348 98.4 72 19 140/84 91 Room Air 09/14 1553 98.8 85 18 148/78 95 09/14 1100 98.4 90 18 150/80 94 Room Air 09/14 1006 99.1 09/14 1005 99.1 09/14 1005 98 180/80 09/14 0913 99.9 98 20 180/80 94 Room Air 09/14 0911 99.9 09/14 0749 99.2 109 20 180/100 92 09/14 0745 108 180/100 09/14 0739 99.2 108 20 180/100 92 Room Air Intake & Output 09/15 0800 09/15 0000 09/14 1600 Intake Total 120 240 910 Output Total 700 400 750 Balance -580 -160 160 Intake, IV 10 Intake, Oral 120 240 900 Number 1 Bowel Movements Output, Urine 700 400 750 Physical Exam General Appearance: No Acute Distress Current Medications: Current Medications Sig/Anthony Start time Last Medication Dose Route Stop Time Status Admin Amlodipine Besylate 5 MG DAILY 09/14 1000 CAN PO Atorvastatin Calcium 40 MG DAILY@1700 09/12 1700 AC 09/14 PO 1650 Calcium Carbonate 500 MG DAILY PRN 09/13 1845 AC 09/14 PO 2137 Enoxaparin Sodium 40 MG DAILY 09/12 1000 AC 09/14 SC 0910 Gabapentin 1,200 MG Q8 09/11 2200 AC 09/15 PO 0636 Hydralazine HCl 25 MG ONCE ONE 09/14 0945 DC 09/14 PO 09/14 0946 1005 Hydromorphone HCl 6 MG Q4-6 PRN PRN 09/14 1045 AC 09/15 PO 0635 Hydromorphone HCl 2 MG Q3P PRN 09/12 1515 DC 09/14 IV 0910 Ibuprofen 800 MG TID 09/12 1600 AC 09/14 PO 2008 Lisinopril 20 MG DAILY 09/11 1909 AC 09/14 PO 0745 Omeprazole 20 MG DAILY AC 09/13 1826 AC 09/15 PO 0636 Oxycodone/ 1 TAB Q4P PRN 09/13 1845 AC 09/14 Acetaminophen PO 0011 Patient Medication 1 ED .STK-MED ONE 09/14 1257 [place] Teaching ED 09/14 1258 Trazodone HCl 300 MG AT BEDTIME 09/11 2200 AC 09/14 PO 2342 Zolpidem Tartrate 10 MG QPM PRN 09/11 1915 AC 09/14 PO 2342 Last 24 Hrs of Lab/Julio Results Last 24 Hrs of Labs/Mics: Laboratory Tests 09/14/16 0839: CBC w Diff NO MAN DIFF REQ, RBC 4.77, MCV 80.1, MCH 27.1, RDW 12.9, MPV 9.4, Gran % 88.4 H, Lymphocytes % 5.1 L, Monocytes % 5.4, Eosinophils % 0.9, Basophils % 0.2, Absolute Granulocytes 8.1 H, Absolute Lymphocytes 0.5 L, Absolute Monocytes 0.5, Absolute Eosinophils 0.1, Absolute Basophils 0, PUBS MCHC 33.8 Assessment/Plan Assessment: Mr Mckeon is a 61 yr old man is known to be in her usual state of health until 5 d ago. He has a past medical history of Prostate cancer(dx 2016) currently radiation therapy, diverticulitis, colon resection. Recent admission to [place] for SBO. He came to the hospital w/ a chief concern of abdominal pain , loose stool x 5 days. He is a middle aged man w/ a PMH of prostate cancer on radiotherapy, diverticulitis, previous GI surgery is being evaluated for severe abdominal pain. Last colonscopy did not show any malignancy. Admssion diagnosis: 1. Superficial thrombophlebitis of abdominal wall Below is the problem list and plan: 1. Abdominal pain- Pain management w/ dialudid. Surgical consult was obtained; patient might have had superficial thrombophlebitis of abdominal wall. NSAIDs and warm compresses at this time. CAT scan abdomen by mouth contrast was negative for any obstructive pathology. 2. Pain management- Gabapentin 1200mg q8. By mouth Dilaudid and Percocet were added to her pain regimen. We will discharge home with by mouth Dilaudid. #3 cough-productive cough. To obtain chest x-ray, and obtain lower aspirate for cultures. Problem List: 1. Superficial thrombophlebitis Pain Ratin Pain Location: abdominal wall Pain Goal: Pain 4 or less Pain Plan: dilaudid Tomorrow's Labs & Rationales: cbc
[2016-09-15 07:54] VITALS: BP 124/78
[2016-09-15 09:18] LABS: ABSOLUTE BASOPHIL COUNT 0 /CUMM (0.0-0.2); ABSOLUTE EOSINOPHIL COUNT 0.3 /CUMM (0.0-0.7); ABSOLUTE GRANULOCYTE CT 4.4 /CUMM (1.4-6.5); ABSOLUTE LYMPH COUNT 1.5 /CUMM (1.2-3.4); ABSOLUTE MONOCYTE COUNT 0.7 /CUMM (0.10-0.60); BASOPHIL % 0.3 % (0.0-2.0); EOSINOPHIL % 4.3 % (0-5); GRANULOCYTE % 63.2 % (42.2-75.2); HEMATOCRIT 34.6 % (42-52); MEAN CORPUSCULAR HGB 26.7 PG (27.0-31.0); MEAN CORPUSCULAR HGB CONC 32.8 G/DL (33.0-37.0); MEAN CORPUSCULAR VOLUME 81.5 FL (80.0-94.0); PLATELET COUNT 141 /CUMM (130-400); RBC DISTRIBUTION WIDTH 13.4 % (11.5-14.5); RED BLOOD CELL CT 4.24 /CUMM (4.70-6.10); WHITE BLOOD CELL COUNT 6.9 /CUMM (4.8-10.8)
--- NOTE | 2016-09-15 09:57 | PN- General Surgery ---
Subjective Subjective: feels better. tolerating diet. Objective Vital Signs and I&Os Vital Signs Date Time Temp Pulse Resp B/P Pulse O2 O2 Flow FiO2 Ox Delivery Rate 09/15 0939 92 152/76 09/15 0754 98.1 78 20 124/78 93 Room Air 09/15 0000 92 Room Air 09/14 2348 98.4 72 19 140/84 91 Room Air 09/14 1553 98.8 85 18 148/78 95 09/14 1100 98.4 90 18 150/80 94 Room Air 09/14 1006 99.1 09/14 1005 99.1 09/14 1005 98 180/80 Intake & Output 09/15 1600 09/15 0800 09/15 0000 09/14 1600 09/14 0800 09/14 0000 Intake Total 120 240 910 500 Output Total 700 400 750 200 500 Balance -580 -160 160 -200 0 Intake, IV 10 Intake, Oral 120 240 900 500 Number 0 1 1 Bowel Movements Output, Urine 700 400 750 200 500 Physical Exam: gen; looks very comfortable. nad. abd; soft. voluntary guarding llq. Results Last 48 Hours of Labs: Laboratory Tests 09/15 09/14 0635 0839 Hematology CBC w Diff Pending NO MAN DIFF REQ WBC (4.8 - 10.8 /CUMM) Pending 9.2 RBC (4.70 - 6.10 /CUMM) Pending 4.77 Hgb (14.0 - 18.0 G/DL) Pending 12.9 L Hct (42 - 52 %) Pending 38.3 L MCV (80.0 - 94.0 FL) Pending 80.1 MCH (27.0 - 31.0 PG) Pending 27.1 RDW (11.5 - 14.5 %) Pending 12.9 Plt Count (130 - 400 /CUMM) Pending 142 MPV (7.4 - 10.4 FL) Pending 9.4 Gran % (42.2 - 75.2 %) 88.4 H Lymphocytes % (20.5 - 51.1 %) 5.1 L Monocytes % (1.7 - 9.3 %) 5.4 Eosinophils % (0 - 5 %) 0.9 Basophils % (0.0 - 2.0 %) 0.2 Absolute Granulocytes (1.4 - 6.5 /CUMM) 8.1 H Absolute Lymphocytes (1.2 - 3.4 /CUMM) 0.5 L Absolute Monocytes (0.10 - 0.60 /CUMM) 0.5 Absolute Eosinophils (0.0 - 0.7 /CUMM) 0.1 Absolute Basophils (0.0 - 0.2 /CUMM) 0 PUBS MCHC (33.0 - 37.0 G/DL) Pending 33.8 Assessment/Plan Assessment/Plan undifferentiated abd. pain. In retrospect, he was admitted with similar symptoms in 2013. It resolved faster last time but was similar in nature. He is suitable for discharge. Would limit narcotics at d/c.
[2016-09-15] MEDS ORDERED: AZITHROMYCIN500 M3 PO (14:53)
[2016-09-15] MEDS ORDERED: DILAUDID4 M1 PO (14:54)
[2016-09-15 15:38] VITALS: BP 140/110
--- NOTE | 2016-09-15 15:51 | PN- Att Addend ---
Attending Addendum Attending Brief Note The pain is overall a little better anti-inflammatories local heat and analgesics with a new problem is a terrible cough nasal congestion phlegm patient is a febrile but will start an oral antibiotic today much monitor the pain and the symptoms of an upper respiratory infection and is better tomorrow and will let him go home Current Medications Sig/Anthony Start time Last Medication Dose Route Stop Time Status Admin Atorvastatin Calcium 40 MG DAILY@1700 09/12 1700 AC 09/14 PO 1650 Azithromycin 500 MG DAILY 09/15 1451 AC PO Calcium Carbonate 500 MG DAILY PRN 09/13 1845 AC 09/14 PO 2137 Enoxaparin Sodium 40 MG DAILY 09/12 1000 AC 09/15 SC 0938 Gabapentin 1,200 MG Q8 09/11 2200 AC 09/15 PO 1355 Hydromorphone HCl 6 MG Q4-6 PRN PRN 09/14 1045 AC 09/15 PO 1508 Ibuprofen 800 MG TID 09/12 1600 AC 09/15 PO 0938 Lisinopril 20 MG DAILY 09/11 1909 AC 09/15 PO 0939 Omeprazole 20 MG DAILY AC 09/13 1826 AC 09/15 PO 0636 Oxycodone/ 1 TAB Q4P PRN 09/13 184 AC 09/14 Acetaminophen PO 0011 Trazodone HCl 300 MG AT BEDTIME 09/11 2199 AC 09/14 PO 2342 Zolpidem Tartrate 10 MG QPM PRN 09/11 1915 AC 09/14 PO 2342 Laboratory Tests 09/15/16 0635: CBC w Diff NO MAN DIFF REQ, RBC 4.24 L, MCV 81.5, MCH 26.7 L, RDW 13.4, MPV 10.0, Gran % 63.2, Lymphocytes % 22.3, Monocytes % 9.9 H, Eosinophils % 4.3, Basophils % 0.3, Absolute Granulocytes 4.4, Absolute Lymphocytes 1.5, Absolute Monocytes 0.7 H, Absolute Eosinophils 0.3, Absolute Basophils 0, PUBS MCHC 32.8 L Microbiology Date/Time Procedure - Status Source Growth 09/15 1008 Respiratory Culture - COLB LOWER RESP 09/15 1008 Gram Stain - COLB LOWER RESP Vital Signs Date Time Temp Pulse Resp B/P Pulse O2 O2 Flow FiO2 Ox Delivery Rate 09/15 1538 98.6 75 20 140/110 95 09/15 0939 92 152/76 09/15 0754 98.1 78 20 124/78 93 Room Air 09/15 0000 92 Room Air 09/14 2348 98.4 72 19 140/84 91 Room Air 09/14 1553 98.8 85 18 148/78 95 Intake & Output 09/15 1600 09/15 0800 09/15 0000 Intake Total 960 120 240 Output Total 1275 700 400 Balance -315 580 -160 Intake, Oral 960 120 240 Output, Urine 1275 700 400
--- NOTE | 2016-09-15 16:34 | RADIOLOGY REPORT ---
EXAMINATION: XR CHEST CLINICAL INFORMATION: Cough. Question atypical pneumonia. COMPARISON: Chest x-ray dated 02/06/2016. CT scan of the abdomen and pelvis dated 09/12/2015. TECHNIQUE: AP and lateral views of the chest were obtained. FINDINGS: The cardiomediastinal silhouette is within normal limits in size. Lungs bilaterally are symmetrically hypoinflated. Slight thickening of the central airways is seen. No focal consolidation, pulmonary edema, effusion or pneumothorax is seen. Moderate vertebral spondylosis is seen in the mid thoracic spine and mild spondylosis in the lower thoracic spine. IMPRESSION: Low lung volumes with thickening of the central airways, suggesting reactive airways disease or bronchitis. No focal pneumonia.
--- NOTE | 2016-09-15 19:45 | NUR ---
0745 PATIENT REPORTED ABDOMINAL PAIN 06/04. RECEIVING PO DILAUDID FOR PAIN. DIALUDID GIVEN ORDERED. PATIENT ALSO REPORTED PAIN PAIN IS GETTING WORSE DESPITE CURRENT PAIN REGIMEN. AYUSH MARTIN NOTFIED.
[2016-09-15 23:53] VITALS: BP 162/94
--- NOTE | 2016-09-16 06:43 | PN- Housestaff ---
Subjective Follow-up For: 1. abd pain Subjective: Pt comforable. No complaints. Cough improved, and abdominal pain improved. Vitals remained stable overnight. He was febrile, Tm 99. Requested to be seen by the outpatient psychiatrist. Review of Systems Constitutional: Reports: see HPI. Objective Last 24 Hrs of Vital Signs/I&O Vital Signs Date Time Temp Pulse Resp B/P Pulse O2 O2 Flow FiO2 Ox Delivery Rate 09/15 2353 98.6 61 19 162/94 95 Room Air 09/15 1538 98.6 75 20 140/110 95 09/15 0939 92 152/76 09/15 0754 98.1 78 20 124/78 93 Room Air Intake & Output 09/16 0800 09/16 0000 09/15 1600 Intake Total 400 960 Output Total 266 189 9594 Balance -300 -200 -315 Intake, Oral 400 960 Output, Urine 563 243 2109 Physical Exam General Appearance: Alert, Oriented X3 Other Physical Findings: General Exam: AAOx3, No acute distress, Skin: No rashes, no breakdown HEENT: PERRLA, EOMI Neck: Supple, No JVD No cervical lymphadenopathy CVS: Reg Rate, Normal S1,S2, No MGR Resp: Normal air entry, no ronchi/rales Abdomen: Soft, tenderness + llq, Normal Bowel Sounds Neuro: Normal Speech, Strength 5/5 b/l x upper extremities, Sensation intact, CN III-XII NL, Reflexes 2+ Extremities: No cyanosis, pedal edema Current Medications: Current Medications Sig/Anthony Start time Last Medication Dose Route Stop Time Status Admin Atorvastatin Calcium 40 MG DAILY@1700 09/12 1700 AC 09/15 PO 1649 Azithromycin 500 MG DAILY 09/15 1451 AC 09/15 PO 1649 Calcium Carbonate 500 MG DAILY PRN 09/13 1845 AC 09/14 PO 2137 Enoxaparin Sodium 40 MG DAILY 09/12 1000 AC 09/15 SC 0938 Gabapentin 1,200 MG Q8 09/11 2200 AC 09/15 PO 2301 Hydromorphone HCl 1 MG ONCE ONE 09/15 2114 DC 09/15 IV 09/15 Hydromorphone HCl 6 MG Q4-6 PRN PRN 09/14 1045 AC 09/16 PO 0254 Ibuprofen 800 MG TID 09/12 1600 AC 09/15 PO 2301 Lisinopril 20 MG DAILY 09/11 1909 AC 09/15 PO 0939 Lorazepam 0.5 MG ONCE ONE 09/15 1700 DC 09/15 PO 09/15 1701 1722 Omeprazole 20 MG DAILY AC 09/13 1826 AC 09/15 PO 0636 Oxycodone/ 1 TAB Q4P PRN 09/13 1845 AC 09/14 Acetaminophen PO 0011 Trazodone HCl 300 MG AT BEDTIME 09/11 2200 AC 09/15 PO 2301 Zolpidem Tartrate 10 MG QPM PRN 09/11 1915 AC 09/15 PO 2305 Last 24 Hrs of Lab/Julio Results Last 24 Hrs of Labs/Mics: Microbiology 09/15 1008 LOWER RESP: Respiratory Culture - COLB 09/15 100 LOWER RESP: Gram Stain - COLB Assessment/Plan Assessment: Mr Mckeon is a 61 yr old man is known to be in her usual state of health until 5 d ago. He has a past medical history of Prostate cancer(dx 2016) currently radiation therapy, diverticulitis, colon resection. Recent admission to [facility] for SBO. He came to the hospital w/ a chief concern of abdominal pain , loose stool x 5 days. He is a middle aged man w/ a PMH of prostate cancer on radiotherapy, diverticulitis, previous GI surgery is being evaluated for severe abdominal pain. Last colonscopy did not show any malignancy. Admssion diagnosis: 1. Superficial thrombophlebitis of abdominal wall Below is the problem list and plan: 1. Abdominal pain- Pain management w/ dialudid. Surgical consult was obtained; patient might have had superficial thrombophlebitis of abdominal wall. NSAIDs and warm compresses at this time. CAT scan abdomen by mouth contrast was negative for any obstructive pathology. 2. Pain management- Gabapentin 1200mg q8. By mouth Dilaudid and Percocet were added to her pain regimen. We will discharge home with by mouth Dilaudid. #3 cough-productive cough. CXR s/o reactive airway disease. Tx w/ Azithromycin. 4. Mental health- To follow up as an outpatient w/ psychiatry. referral provided. Problem List: 1. Superficial thrombophlebitis Pain Ratin Pain Location: 1. abdominal wall Pain Goal: Pain 4 or less Pain Plan: dilaudid Tomorrow's Labs & Rationales: non labs are necessary
[2016-09-16 08:11] VITALS: BP 118/81
[2016-09-16 09:36] VITALS: BP 118/81
[2016-09-16 10:25] LABS: ABSOLUTE BASOPHIL COUNT 0 /CUMM (0.0-0.2); ABSOLUTE EOSINOPHIL COUNT 0.3 /CUMM (0.0-0.7); ABSOLUTE LYMPH COUNT 1.6 /CUMM (1.2-3.4); ABSOLUTE MONOCYTE COUNT 0.7 /CUMM (0.10-0.60); BASOPHIL % 0.3 % (0.0-2.0); EOSINOPHIL % 6.1 % (0-5); GRANULOCYTE % 53.5 % (42.2-75.2); HEMATOCRIT 32.7 % (42-52); MEAN CORPUSCULAR HGB 26.8 PG (27.0-31.0); MEAN CORPUSCULAR HGB CONC 32.8 G/DL (33.0-37.0); MEAN CORPUSCULAR VOLUME 81.8 FL (80.0-94.0); MEAN PLATELET VOLUME 9.7 FL (7.4-10.4); PLATELET COUNT 157 /CUMM (130-400); RBC DISTRIBUTION WIDTH 13.3 % (11.5-14.5); RED BLOOD CELL CT 3.99 /CUMM (4.70-6.10); WHITE BLOOD CELL COUNT 5.5 /CUMM (4.8-10.8)
[2016-09-16] MEDS ORDERED: IBUPROFEN800 M1 PO (14:11)
--- NOTE | 2016-09-16 15:35 | PN- Att Addend ---
Attending Addendum Attending Brief Note Patient still congested bed less, the pain about the same but slowly improving. Temp is 99. His chest x-ray showed signs of acute bronchitis started the antibiotic yesterday and will continue will start disposition plans later on today to follow-up as an outpatient, finished antibiotic will be given a few pain medications and continued anti-inflammatory and local heat Current Medications Sig/Anthony Start time Last Medication Dose Route Stop Time Status Admin Atorvastatin Calcium 40 MG DAILY@1700 09/12 1700 AC 09/15 PO 1649 Azithromycin 500 MG DAILY 09/15 1451 AC 09/16 PO 0935 Calcium Carbonate 500 MG DAILY PRN 09/13 1845 AC 09/14 PO 2137 Enoxaparin Sodium 40 MG DAILY 09/12 1000 AC 09/16 SC 0939 Gabapentin 1,200 MG Q8 09/11 220 AC 09/16 PO 1333 Guaifenesin/ 10 ML Q6P PRN 09/16 1015 AC 09/16 Dextromethorphan PO 1335 Hydromorphone HCl 1 MG ONCE ONE 09/15 2114 DC 09/15 IV 09/15 2115 211 Hydromorphone HCl 6 MG Q4-6 PRN PRN 09/14 1045 AC 09/16 PO 1119 Ibuprofen 800 MG TID 09/12 1600 AC 09/16 PO 0935 Lisinopril 20 MG DAILY 09/11 190 09/16 PO 0936 Lorazepam 0.5 MG ONCE ONE 09/15 1700 DC 09/15 PO 09/15 1701 1722 Omeprazole 20 MG DAILY AC 09/13 1826 AC 09/16 PO 0649 Oxycodone/ 1 TAB Q4P PRN 09/13 184 AC 09/16 Acetaminophen PO 0938 Trazodone HCl 300 MG AT BEDTIME 09/11 2199 09/15 PO 2301 Zolpidem Tartrate 10 MG QPM PRN 09/11 191 AC 09/15 PO 2305 Laboratory Tests 09/16/16 0630: CBC w Diff NO MAN DIFF REQ, RBC 3.99 L, MCV 81.8, MCH 26.8 L, RDW 13.3, MPV 9.7, Gran % 53.5, Lymphocytes % 28.2, Monocytes % 11.9 H, Eosinophils % 6.1 H, Basophils % 0.3, Absolute Granulocytes 3.0, Absolute Lymphocytes 1.6, Absolute Monocytes 0.7 H, Absolute Eosinophils 0.3, Absolute Basophils 0, PUBS MCHC 32.8 L Vital Signs Date Time Temp Pulse Resp B/P Pulse O2 O2 Flow FiO2 Ox Delivery Rate 09/16 1415 Room Air 09/16 0936 99.1 71 20 118/81 09/16 0811 99.1 71 20 118/81 95 Room Air 09/16 0800 96 Room Air Room Air Intake & Output 09/16 1600 Intake Total 480 Output Total 700 Balance -220 Intake, Oral 480 Output, Urine 700
--- NOTE | 2016-09-22 16:07 | Discharge Summary ---
Visit Information Visit Dates Admission Date: 09/11/16 Discharge Date: 09/16/16 Hospital Course Course Attending Physician: KELLI ANTONIO MD Primary Care Physician: KELLI ANTONIO MD Consulting Request: Consulting Specialty: General Surgery Consulting Physician: Dr. Prescott Reason for Consult: abdominal pain Hospital Course: 61-year-old white male with abdominal pain loose bowel movements and is localized in the left lower quadrant some nausea. Came to the ER her genetic admitted for observation. Had surgical consult. The x-rays suggested an abdominal wall superficial thrombophlebitis. Pain was intense in that area. Continued being treated with pain medication started with local heat and anti- inflammatories and it took several days for the pain to decrease . Also while in the hospital developed symptoms of acute bronchitis which check to be treated Complications: None Allergies: Coded Allergies: No Known Allergies (09/11/16) Significant Procedures: SERVICE DATE: 09/11/16-1449 EXAM TYPE: US - US-ABD/PELV ORGAN DOPPLER EXAMINATION: US ABDOMEN AND PELVIS CLINICAL INFORMATION: Severe lower abdominal pain. COMPARISON: CT of abdomen pelvis from 09/11/2016. TECHNIQUE: Sonographic imaging of the left lower quadrant was performed through the region of pain using a linear 9 MHz transducer. FINDINGS: Deep to the examined left lower abdominal wall, there is nondilated small bowel measuring up to 2 cm diameter. The fastener technologist reports that the evaluation was suboptimal due to patient discomfort and patient movement during the test. The visualized small bowel in the left abdomen showed no mural edema or hyperemia on color Doppler imaging. No free fluid within the abdominal cavity. IMPRESSION: No acute sonographic findings in the region of patient's pain. SERVICE DATE: 09/12/16- EXAM TYPE: CAT - CT ABD & PELVIS W/ ORAL CONTRA EXAMINATION: CT ABDOMEN AND PELVIS WITH CONTRAST CLINICAL INFORMATION: Intra-abdominal pathology, fever COMPARISON: None. TECHNIQUE: Multidetector volumetric imaging was performed from the superior aspect of the liver through the pubic symphysis following administration of oral contrast. Sagittal and coronal reformatted images were obtained on the technologist's workstation. FINDINGS: Minimal change the lung bases. Upper abdomen Liver and spleen are felt to be within normal limits. Region the pancreas is unremarkable. The adrenal glands are normal. Bowel pattern is nonobstructing. No free fluid. There is no bulky adenopathy here. Calcified aorta which appears nonaneurysmal. Kidneys in the early nephrographic phase. Nonobstructing calculus upper pole left kidney. Some subcentimeters areas in the kidneys may well represent evolving cysts. Impossible to characterize on this study. In the pelvis surgical sutures in the rectosigmoid distally. No acute finding. No free fluid. Some scattered diverticula disease. No evidence for diverticulitis. There is no bulky adenopathy here. Beginnings of a small fatty inguinal herniation on the left. IMPRESSION: No acute finding here. The bowel pattern is nonobstructive. No suspicious fluid collection. SERVICE DATE: 09/15/16- EXAM TYPE: RAD - XRY-CHEST XRAY, PA AND LATERAL EXAMINATION: XR CHEST CLINICAL INFORMATION: Cough. Question atypical pneumonia. COMPARISON: Chest x-ray dated 02/06/2016. CT scan of the abdomen and pelvis dated 09/12/2015. TECHNIQUE: AP and lateral views of the chest were obtained. FINDINGS: The cardiomediastinal silhouette is within normal limits in size. Lungs bilaterally are symmetrically hypoinflated. Slight thickening of the central airways is seen. No focal consolidation, pulmonary edema, effusion or pneumothorax is seen. Moderate vertebral spondylosis is seen in the mid thoracic spine and mild spondylosis in the lower thoracic spine. IMPRESSION: Low lung volumes with thickening of the central airways, suggesting reactive airways disease or bronchitis. No focal pneumonia. Pertinent Lab Results: Laboratory Tests 09/11 09/11 09/11 1536 1431 1222 Chemistry Lactic Acid (0.7 - 2.1 mmol/L) 0.9 Cancelled Urines Urine Color (YEL,AMB,STR) YEL Urine Clarity (CLEAR) CLEAR Urine pH (5.0 - 8.0) 6.5 Ur Specific [place] (1.001 - 1.035) 1.010 Urine Protein (NEG,<30 MG/DL) NEG Urine Ketones (NEG) NEG Urine Nitrite (NEG) NEG Urine Bilirubin (NEG) NEG Urine Urobilinogen (0.1 - 1.0 EU/dl) 0.2 Ur Leukocyte Esterase (NEG) NEG Ur Microscopic EXAM NOT REQUIRED Urine Hemoglobin (NEG) NEG Urine Glucose (N MG/DL) NEG 09/11 1142 Chemistry Sodium (137 - 145 mmol/L) 140 Potassium (3.5 - 5.1 mmol/L) 5.4 H Chloride (98 - 107 mmol/L) 104 Carbon Dioxide (22 - 30 mmol/L) 27 Anion Gap (5 - 16) 9 BUN (9 - 20 mg/dL) 32 H Creatinine (0.7 - 1.2 mg/dL) 1.1 Estimated GFR (>60 ml/min) > 60 BUN/Creatinine Ratio (7 - 25 %) 29.1 H Glucose (65 - 99 mg/dL) 116 H Lactic Acid (0.7 - 2.1 mmol/L) 0.9 Calcium (8.4 - 10.2 mg/dL) 9.4 Total Bilirubin (0.2 - 1.3 mg/dL) 0.5 AST (17 - 59 U/L) 24 ALT (21 - 72 U/L) 38 Alkaline Phosphatase (< 127 U/L) 55 Total Protein (6.3 - 8.2 g/dL) 6.7 Albumin (3.5 - 5.0 g/dL) 3.8 Globulin (1.9 - 4.2 gm/dL) 2.9 Albumin/Globulin Ratio (1.1 - 2.2 %) 1.3 Amylase (30 - 110 U/L) 70 Lipase (23 - 300 U/L) 74 Hematology CBC w Diff NO MAN DIFF REQ WBC (4.8 - 10.8 /CUMM) 7.7 RBC (4.70 - 6.10 /CUMM) 4.63 L Hgb (14.0 - 18.0 G/DL) 12.4 L Hct (42 - 52 %) 37.3 L MCV (80.0 - 94.0 FL) 80.7 MCH (27.0 - 31.0 PG) 26.9 L RDW (11.5 - 14.5 %) 13.9 Plt Count (130 - 400 /CUMM) 170 MPV (7.4 - 10.4 FL) 9.4 Gran % (42.2 - 75.2 %) 69.3 Lymphocytes % (20.5 - 51.1 %) 20.4 L Monocytes % (1.7 - 9.3 %) 7.5 Eosinophils % (0 - 5 %) 2.5 Basophils % (0.0 - 2.0 %) 0.3 Absolute Granulocytes (1.4 - 6.5 /CUMM) 5.4 Absolute Lymphocytes (1.2 - 3.4 /CUMM) 1.6 Absolute Monocytes (0.10 - 0.60 /CUMM) 0.6 Absolute Eosinophils (0.0 - 0.7 /CUMM) 0.2 Absolute Basophils (0.0 - 0.2 /CUMM) 0 PUBS MCHC (33.0 - 37.0 G/DL) 33.3 09/12/16 0620: Anion Gap 9, Estimated GFR > 60, BUN/Creatinine Ratio 19.1, CBC w Diff NO MAN DIFF REQ, RBC 4.43 L, MCV 81.5, MCH 26.9 L, RDW 13.5, MPV 9.6, Gran % 81.4 H, Lymphocytes % 9.9 L, Monocytes % 6.0, Eosinophils % 2.5, Basophils % 0.2, Absolute Granulocytes 6.5, Absolute Lymphocytes 0.8 L, Absolute Monocytes 0.5, Absolute Eosinophils 0.2, Absolute Basophils 0, PUBS MCHC 33.0 09/11/16 1536: Lactic Acid 0.9 09/11/16 1431: Lactic Acid Cancelled 09/13/16 0730: Anion Gap 10, Estimated GFR > 60, BUN/Creatinine Ratio 14.0, CBC w Diff Pending, WBC Pending, RBC Pending, Hgb Pending, Hct Pending, MCV Pending, MCH Pending, RDW Pending, Plt Count Pending, MPV Pending, Gran % Pending, Lymphocytes % Pending, Monocytes % Pending, Eosinophils % Pending, Basophils % Pending, Absolute Granulocytes Pending, Absolute Lymphocytes Pending, Absolute Monocytes Pending, Absolute Eosinophils Pending, Absolute Basophils Pending, PUBS MCHC Pending 09/14/16 0839: CBC w Diff NO MAN DIFF REQ, RBC 4.77, MCV 80.1, MCH 27.1, RDW 12.9, MPV 9.4, Gran % 88.4 H, Lymphocytes % 5.1 L, Monocytes % 5.4, Eosinophils % 0.9, Basophils % 0.2, Absolute Granulocytes 8.1 H, Absolute Lymphocytes 0.5 L, Absolute Monocytes 0.5, Absolute Eosinophils 0.1, Absolute Basophils 09/15/16 0635: CBC w Diff NO MAN DIFF REQ, RBC 4.24 L, MCV 81.5, MCH 26.7 L, RDW 13.4, MPV 10.0, Gran % 63.2, Lymphocytes % 22.3, Monocytes % 9.9 H, Eosinophils % 4.3, Basophils % 0.3, Absolute Granulocytes 4.4, Absolute Lymphocytes 1.5, Absolute Monocytes 0.7 H, Absolute Eosinophils 0.3, Absolute Basophils 0, PUBS MCHC 32.8 L 09/16/16 0630: CBC w Diff NO MAN DIFF REQ, RBC 3.99 L, MCV 81.8, MCH 26.8 L, RDW 13.3, MPV 9.7, Gran % 53.5, Lymphocytes % 28.2, Monocytes % 11.9 H, Eosinophils % 6.1 H, Basophils % 0.3, Absolute Granulocytes 3.0, Absolute Lymphocytes 1.6, Absolute Monocytes 0.7 H, Absolute Eosinophils 0.3, Absolute Basophils 0, PUBS MCHC 32.8 L Disposition Summary Disposition Principal Diagnosis: Abdominal pain loose bowel movements with abdominal wall superficial thrombophlebitis Acute bronchitis Additional Diagnosis: History of prostate cancer History of diverticulitis Hyperlipidemia Depression Discharge Disposition: home or self care Discharge Instructions General Discharge Information Code Status: Full Code Patient's Diet: And healthy heart Patient's Activity: As tolerated Follow-Up Instructions/Appts: With Dr. Antonio Medications at Discharge Discharge Medications: Continue taking these medications: Trazodone HCl (Trazodone HCl) 300 MG TABLET 1 Tablet ORAL Every night Comments: Last Taken: 09/15/16 Time: 11P.M Zolpidem Tartrate (Zolpidem Tartrate) 10 MG TABLET 1 Tablet ORAL Every night as needed for SLEEP Qty = 30 Comments: Last Taken: 09/15/16 Time: 11P.M Atorvastatin Calcium (Lipitor) 40 MG TABLET 1 Tablet ORAL DAILY Comments: Last Taken:09/15/16 Time: 4:49P.M Gabapentin (Gabapentin) 600 MG TABLET 2 Tablet ORAL THREE TIMES DAILY Comments: Last Taken: 09/16/16 Time: 1:30P.M Lisinopril (Lisinopril) 20 MG TABLET 1 Tablet ORAL DAILY Comments: Last Taken: 09/16/16 Time: 9:35A.M Start taking the following new medications: Ibuprofen (Ibuprofen) 800 MG TABLET 1 Tablet ORAL THREE TIMES DAILY Qty = 15 No Refills Instructions: . Comments: Last Taken:09/16/16 Time:9:35A.M Azithromycin (Azithromycin) 500 MG TABLET 1 Tablet ORAL DAILY Qty = 4 No Refills Comments: Last Taken:09/16/16 Time:9:35A.M Hydromorphone HCl (Dilaudid) 4 MG TABLET 1 Tablet ORAL EVERY SIX HOURS NEEDED as needed for SEVERE PAIN Qty = 10 No Refills Comments: Last Taken:09/16/16 Time: 11:19A.M Copies To: KELLI ANTONIO MD; ISABELA ANDERSON,REJI Oliveira Attending MD Review Statement Documenting Attending: KELLI ANTONIO MD
== END 2016-09-16 16:30 | DRG 301 ==
LOC: ENRESERVTM → ENRESERVDT → CANRESERV → ERH 10:20 → ERHI 17:14 → ENPENDDIS 17:14 → 2NB 17:14
PROVIDERS: Internal Medicine; Internal Medicine Endocrinology, Diabetes & Metabolism; Physician Assistant; ADMIT Internal Medicine
DX: I80.8 Phlebitis and thrombophlebitis of other sites (principal); C61 Malignant neoplasm of prostate; Z89.612 Acquired absence of left leg above knee; I10 Essential (primary) hypertension; E78.00 Pure hypercholesterolemia, unspecified; F32.9 Major depressive disorder, single episode, unspecified
CPT/HCPCS: 2NASP; 2NBSP; 6040; 36415; 74176; 74177; 77385; 81003; 82436; 87040; 87045; 87070; 87086; 93005; 93010; 96361; 96374; 96375; 96376; G0378; J0456; J1170; J1200; J1650; J1885; J2405

== ENCOUNTER 2016-11-12 20:57 | Emergency (ER) | payer OTHER ==
[~2016-11-12] VITALS: Ht 172.7 cm; Wt 85.3 kg
[~2016-11-12 20:57] MED LIST changes: +AZITHROMYCIN500 M3 PO; +DILAUDID4 M1 PO; +IBUPROFEN800 M1 PO
[2016-11-12] MEDS ORDERED: PAROXETINE HCL40 M1 PO (21:21)
[2016-11-12] MEDS ORDERED: MULTI-DAY VITA1 EACH PO (21:22)
--- NOTE | 2016-11-12 21:37 | ED GI/GU/ABDOMINAL COMPLAINT ---
History of Present Illness General Chief Complaint: Male Genitourinary Problems Stated Complaint: GROWTH ON SCRTOUM Source: patient Exam Limitations: no limitations Vital Signs & Intake/Output Vital Signs & Intake/Output Vital Signs Date Time Temp Pulse Resp B/P Pulse O2 O2 Flow FiO2 Ox Delivery Rate 11/12 2103 96.0 94 18 108/83 100 Room Air Allergies Coded Allergies: No Known Allergies (09/11/16) Reconcile Medications Atorvastatin Calcium (Lipitor) 40 MG TABLET 1 TAB PO DAILY CHOLESTEROL ( Reported) Ciprofloxacin HCl (Cipro) 500 MG TABLET 1 TAB PO BID EPIDIDYMITIS Gabapentin 600 MG TABLET 2 TAB PO TID NERVE PAIN (Reported) Ibuprofen 600 MG TABLET 1 TAB PO TID PRN PAIN with food Lisinopril 20 MG TABLET 1 TAB PO DAILY BP (Reported) Lorazepam (Ativan) 1 MG TABLET 1 TAB PO BID STRESS FOUR....[id number] Multivitamin (Multi-Day Vitamins) 1 EACH TABLET 1 TAB PO DAILY SUPPLEMENT ( Reported) Oxycodone HCl/Acetaminophen (Percocet 5-325 MG Tablet) 5 MG-325 MG TABLET 1 TAB PO 4XDP PRN PAIN TEN...[id number] Paroxetine HCl 20 MG TABLET 1 TAB PO DAILY MENTAL HEALTH (Reported) Trazodone HCl 300 MG TABLET 1 TAB PO QPM PRN SLEEP (Reported) Zolpidem Tartrate 10 MG TABLET 1 TAB PO QPM PRN SLEEP (Reported) Triage Note: PT TO ED C/O "GROWTH ON TESTICLE THAT STARTED ABOUT 3 HOURS AGO AND I CAN FEEL IT GETTING BETTER" PT REPORTING HE RECENTLY FINISHED TREATMENT FOR PROSTATE CA (RADIATION). PT REPORTING HE NORMALLY HAS BASELINE DIFFICULTY URINATING SO IS UNABLE TO TELL IF THAT HAS GOTTEN WORSE. DENIES REDNESS, DRAINAGE, TENDER TO PALPATION. REPORTING "ITS THROBBING". Triage Nurses Notes Reviewed? yes Onset: Gradual Duration: hour(s): Timing: LEFT TESTICLE PAIN Location: scrotal Radiation: no radiation Activities at Onset: GETTING XRT FOR PROSTATE CA Prior Abdominal Problems: none Sexually Active: No Modifying Factors: Worsens With: palpation. Associated Symptoms: RIGHT TESTICULAR PAIN HPI: 61-year-old gentleman history of prostate cancer undergoing 45 treatments of XRT presents with right testicular pain. He states that he has pain in his right scrotum, "in the area where it feels like worms." He notes that the pain began a few hours ago and has been getting worse. He has no dysuria diarrhea penile discharge nausea or fever. He is tolerating his XRT well. He is otherwise well. Past History Travel History Traveled to [place] past 21 day No Medical History Any Pertinent Medical History? see below for history Neurological: NONE EENT: NONE Cardiovascular: hypertension, hyperlipidemia Respiratory: NONE Gastrointestinal: colonoscopy in 2015- 2 tubular adenomas, random biopsies were negative for microscopic colitis Hepatic: NONE Renal: NONE Musculoskeletal: PROST. 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 Hx Contributory? No Review of Systems Review of Systems Constitutional: Reports: no symptoms. EENTM: Reports: no symptoms. Respiratory: Reports: no symptoms. Cardiovascular: Reports: no symptoms. GI: Reports: no symptoms. Genitourinary: Reports: no symptoms. Musculoskeletal: Reports: no symptoms. Skin: Reports: no symptoms. Neurological/Psychological: Reports: no symptoms. Hematologic/Endocrine: Reports: no symptoms. Immunologic/Allergic: Reports: no symptoms. All Other Systems: Reviewed and Negative Physical Exam Physical Exam General Appearance: well developed/nourished, mild distress Head: atraumatic, normal appearance Eyes: Bilateral: normal appearance. Ears, Nose, Throat, Mouth: hearing grossly normal Neck: normal inspection Respiratory: normal breath sounds, chest non-tender, no respiratory distress, quiet respiration, lungs clear Cardiovascular: regular rate/rhythm Gastrointestinal: normal bowel sounds, soft, non-tender Male Genitals: right testicular tenderness in the area of the epididymis. No mass. Normal lie. Back: normal inspection Extremities: normal range of motion Neurologic/Psych: no motor/sensory deficits, awake, alert, oriented x 3 Skin: intact, normal color, warm/dry Core Measures ACS in differential dx? No Severe Sepsis Present: No Septic Shock Present: No Progress Differential Diagnosis: epididymitis, urethritis, UTI/pyelo Plan of Care: Orders Procedure Date/time Status URINALYSIS 11/13 2143 Complete Laboratory Tests 11/12/162227: Urine Color YEL, Urine Clarity CLEAR, Urine pH 6.0, Ur Specific [place] 1.020, Urine Protein TRACE H, Urine Ketones NEG, Urine Nitrite NEG, Urine Bilirubin NEG, Urine Urobilinogen 0.2, Ur Leukocyte Esterase NEG, Ur Microscopic SEDIMENT EXAMINED, Urine RBC RARE, Ur Epithelial Cells RARE, Urine Hemoglobin NEG, Urine Glucose NEG Diagnostic Imaging: Viewed by Me: Ultrasound. Discussed w/RAD: Ultrasound. Radiology Impression: testicular u/s... no acute disease... full report below. Initial ED EKG: none Comments: PATIENT: TAYLOR MCCABE JR PRESENT AGE: 61 PATIENT ACCOUNT NO: [id number] : 57 LOCATION: [facility] ORDERING PHYSICIAN: KENNETH CRAIG MD SERVICE DATE: 11/12/16-2143 EXAM TYPE: US - US-TESTICULAR EXAMINATION: US SCROTUM CLINICAL INFORMATION: Right scrotal pain. COMPARISON: None. TECHNIQUE: A sonogram of the scrotum was performed assessing stephenson-scale appearance and color Doppler flow. FINDINGS: RIGHT: Right testicle measures 3.8 x 1.5 x 2.6 cm, volume 10.5 mL. Parenchymal echotexture is normal. No focal testicular parenchymal lesions are visualized. Normal symmetric intratesticular flow is visualized. Right epididymal head is normal in size. No right hydrocele or varicocele is seen. LEFT: Left testicle measures 4.2 x 1.6 x 2.7 cm, volume 12.9 mL. Parenchymal echotexture is normal. No focal testicular parenchymal lesions are visualized. Normal symmetric intratesticular flow is visualized. Left epididymal head is normal in size. There is a trace left hydrocele. No varicocele is present. IMPRESSION: Trace left hydrocele. Otherwise, unremarkable scrotal ultrasound. DICTATED BY: DANIEL QUIJANO MD DATE/TIME DICTATED:11/12/162231 WASHER MACHINE:TOMMIE DATE/TIME TRANSCRIBED:11/12/162231 CONFIDENTIAL, DO NOT COPY WITHOUT APPROPRIATE AUTHORIZATION. <Electronically signed in Other Vendor System> SIGNED BY: DANIEL QUIJANO MD 11/12/164 Departure Departure Disposition: HOME OR SELF CARE Condition: Stable Clinical Impression Primary Impression: Epididymitis Referrals: KELLI SILVA MD (PCP/Family) Departure Forms: Customer Survey General Discharge Information Prescriptions: Current Visit Scripts Ciprofloxacin HCl (Cipro) 1 TAB PO BID #20 TAB Lorazepam (Ativan) 1 TAB PO BID #4 TAB FOUR....[id number] Oxycodone HCl/Acetaminophen (Percocet 5-325 MG Tablet) 1 TAB PO 4XDP PRN PAIN #10 TAB TEN...[id number] Ibuprofen 1 TAB PO TID PRN PAIN #20 TAB with food Comments 11/12/16, 23:44... pt with stable u/s and u/a... likely epididiymitis clinically... pt will follow up with dr. noel in the AM.
--- NOTE | 2016-11-12 22:46 | ULTRASOUND REPORT ---
EXAMINATION: US SCROTUM CLINICAL INFORMATION: Right scrotal pain. COMPARISON: None. TECHNIQUE: A sonogram of the scrotum was performed assessing stephenson-scale appearance and color Doppler flow. FINDINGS: RIGHT: Right testicle measures 3.8 x 1.5 x 2.6 cm, volume 10.5 mL. Parenchymal echotexture is normal. No focal testicular parenchymal lesions are visualized. Normal symmetric intratesticular flow is visualized. Right epididymal head is normal in size. No right hydrocele or varicocele is seen. LEFT: Left testicle measures 4.2 x 1.6 x 2.7 cm, volume 12.9 mL. Parenchymal echotexture is normal. No focal testicular parenchymal lesions are visualized. Normal symmetric intratesticular flow is visualized. Left epididymal head is normal in size. There is a trace left hydrocele. No varicocele is present. IMPRESSION: Trace left hydrocele. Otherwise, unremarkable scrotal ultrasound.
[2016-11-12] MEDS ORDERED: IBUPROFEN600 M1 PO (23:19)
[2016-11-12] MEDS ORDERED: ATIVAN1 M1 PO (23:19)
[2016-11-12] MEDS ORDERED: CIPRO500 M1 PO (23:19)
[2016-11-12] MEDS ORDERED: PERCOCET 5-3251 EACH PO (23:19)
[2016-11-12 23:59] VITALS: BP 110/69
== END 2016-11-13 ==
LOC: ERH 20:57
DX: N45.1 Epididymitis (principal)
CPT/HCPCS: 81001

== ENCOUNTER 2016-11-15 14:18 | Emergency (ER) | payer OTHER ==
[~2016-11-15] VITALS: Ht 170.2 cm; Wt 85.3 kg
[~2016-11-15 14:18] MED LIST changes: +ATIVAN1 M1 PO; +CIPRO500 M1 PO; +IBUPROFEN600 M1 PO; +MULTI-DAY VITA1 EACH PO; +PAROXETINE HCL40 M1 PO; +PERCOCET 5-3251 EACH PO
[2016-11-15 14:43] VITALS: BP 160/85
--- NOTE | 2016-11-15 15:34 | ED PSYCHIATRIC COMPLAINT ---
See Addendum History of Present Illness General Chief Complaint: Psychiatric Related Complaint Stated Complaint: DEPRESSION,ANXIETY Source: patient Exam Limitations: no limitations Vital Signs & Intake/Output Vital Signs & Intake/Output Vital Signs Date Time Temp Pulse Resp B/P Pulse O2 O2 Flow FiO2 Ox Delivery Rate 11/15 1443 98.0 96 17 160/85 98 Room Air Room Air 11/15/16 4 PM 61-year-old man presents to the emergency department complaining of depression and anxiety. He says he is not homicidal or suicidal. He just wants to talk to somebody. He has a lot going on in that he has a history of prostate cancer. He also was recently been diagnosed with epididymitis and he broke up with his girlfriend. I spoke with his friend who is at the bedside. He corroborates the patient's story in all ways and that the patient is not a danger to himself or others. He says she is very anxious and would like to get a psychiatry appointment. He was started on Paxil, 30 mg a day; he feels this is helping. He is also on Lipitor; and lisinopril for his blood pressure. He is also on antibiotics for the epididymitis. The onset of the symptoms have been abrupt, the duration has been weeks really, the severity is significant as his symptoms required to come to the emergency department for care. On physical exam he is awake alert oriented 3. He has a normal affect. He is mildly irritated that he had to wait prior to being evaluated. His right testicle has localized tenderness. He had an ultrasound which was negative for torsion. I will give Mobic for his pain. He will also be prescribed Xanax to help with anxiety. I will have IOP contact him to make an appointment with outpatient psychiatry for him for next week. (MARTHA CORONA DO) Allergies Coded Allergies: No Known Allergies (11/15/16) Reconcile Medications Alprazolam (Xanax XR) 0.5 MG TAB.ER.24H 1 TAB PO Q12 PRN ANXIETY Atorvastatin Calcium (Lipitor) 40 MG TABLET 1 TAB PO DAILY CHOLESTEROL ( Reported) Ciprofloxacin HCl (Cipro) 500 MG TABLET 1 TAB PO BID EPIDIDYMITIS Gabapentin 600 MG TABLET 2 TAB PO TID NERVE PAIN (Reported) Ibuprofen 600 MG TABLET 1 TAB PO TID PRN PAIN with food Lisinopril 20 MG TABLET 1 TAB PO DAILY BP (Reported) Lorazepam (Ativan) 1 MG TABLET 1 TAB PO BID STRESS FOUR....[id number] Meloxicam (Mobic) 15 MG TABLET 1 TAB PO DAILY PRN PAIN Multivitamin (Multi-Day Vitamins) 1 EACH TABLET 1 TAB PO DAILY SUPPLEMENT ( Reported) Oxycodone HCl/Acetaminophen (Percocet 5-325 MG Tablet) 5 MG-325 MG TABLET 1 TAB PO 4XDP PRN PAIN TEN...[id number] Paroxetine HCl 20 MG TABLET 1 TAB PO DAILY MENTAL HEALTH (Reported) Trazodone HCl 300 MG TABLET 1 TAB PO QPM PRN SLEEP (Reported) Zolpidem Tartrate 10 MG TABLET 1 TAB PO QPM PRN SLEEP (Reported) Triage Note: PT TO TRIAGE FOR ICNREASING ANXIETY AND DEPRESSION. PT STATES HE HAS PROSTATE CANCER AND HE GF JUST LEFT HIM. HE ALSO WAS DIAGNOSED EPIDYMIDITIS LAST WEEK AND PAIN HAS BEEN UNCONTROLLED Triage Nurses Notes Reviewed? yes HPI: Follow up with outpatient psychiatry. Eric as directed. Past History Travel History Traveled to [place] past 21 day No Medical History Any Pertinent Medical History? see below for history Neurological: NONE EENT: NONE Cardiovascular: hypertension, hyperlipidemia Respiratory: NONE Gastrointestinal: colonoscopy in 2014- 2 tubular adenomas, random biopsies were negative for microscopic colitis Hepatic: NONE Renal: NONE Musculoskeletal: PROST. 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 Hx Contributory? No Review of Systems Review of Systems Constitutional: Denies: fever. EENTM: Denies: visual changes. Respiratory: Denies: short of breath. Cardiovascular: Denies: chest pain. GI: Denies: abdominal pain. Genitourinary: Reports: no symptoms. Musculoskeletal: Reports: no symptoms. Skin: Reports: no symptoms. Neurological/Psychological: Reports: anxiety, depressed. Hematologic/Endocrine: Denies: bruising, bleeding. Physical Exam Physical Exam General Appearance: alert, awake, anxious, mild distress Head: atraumatic, normal appearance Eyes: Bilateral: normal appearance, PERRL, EOMI. Ears, Nose, Throat: normal pharynx, normal ENT inspection Neck: normal inspection, supple, full range of motion Respiratory: normal breath sounds, chest non-tender, no respiratory distress Cardiovascular: regular rate/rhythm Gastrointestinal: non-tender Extremities: lower extremity amputation. Left Neurological/Psychiatric: awake, alert, anxious, oriented x 3 Appearance/Memory/Insight: appropriate appearance Behavoir/Eye Contact/Speech: cooperative Thoughts/Hallucinations: normal thought pattern Skin: intact, normal color, warm/dry SAD PERSONS SAD PERSONS Response Value Male Sex? yes 1 Age <19 or >45 years? yes 1 Depression/Hopelessness? yes 2 Previous Attempts/Psych Care yes 1 Single//? yes 1 Social Support? has support 0 Total 6 SAD PERSONS Done? yes, patient not suicidal Progress Differential Diagnosis: drug intoxication, drug overdose, drug withdrawal, depression, anxiety Plan of Care: Follow up with outpatient psychiatry. Initial ED EKG: none Departure Departure Disposition: HOME OR SELF CARE Condition: Stable Clinical Impression Primary Impression: Anxiety Secondary Impressions: Depression Referrals: KELLI SILVA MD (PCP/Family) Departure Forms: Customer Survey General Discharge Information Prescriptions: Current Visit Scripts Meloxicam (Mobic) 1 TAB PO DAILY PRN PAIN #10 TAB Alprazolam (Xanax XR) 1 TAB PO Q12 PRN ANXIETY #20 TAB Comments The patient refused to talk to crisis he was insistent upon leaving. He denies suicidal ideation. I will have an outpatient psychiatric appointment scheduled for him. He was given Xanax. He agreed to return to the emergency department should he feel worse in any way.
[2016-11-15] MEDS ORDERED: XANAX XR0.5 M1 PO (16:03)
[2016-11-15] MEDS ORDERED: MOBIC15 M1 PO (16:03)
== END 2016-11-15 16:14 ==
LOC: ERH 14:18
DX: F41.9 Anxiety disorder, unspecified (principal); F32.9 Major depressive disorder, single episode, unspecified

== ENCOUNTER 2016-11-21 12:56 | Emergency (ER) | payer OTHER ==
[~2016-11-21] VITALS: Ht 170.2 cm; Wt 85.3 kg
[~2016-11-21 12:56] MED LIST changes: +MOBIC15 M1 PO; +XANAX XR0.5 M1 PO
[2016-11-21 12:59] VITALS: BP 150/104
--- NOTE | 2016-11-21 13:25 | ED CARDIAC/CP/PALPITATIONS ---
History of Present Illness General Chief Complaint: Chest Pain Stated Complaint: CP Source: patient, old records, EMS, friend Exam Limitations: no limitations Vital Signs & Intake/Output Vital Signs & Intake/Output Vital Signs Date Time Temp Pulse Resp B/P Pulse O2 O2 Flow FiO2 Ox Delivery Rate 11/21 1352 97.3 11/21 1300 Room Air Room Air 11/21 1259 97.3 85 28 150/104 94 Room Air Allergies Coded Allergies: No Known Allergies (11/21/16) Reconcile Medications Alprazolam (Xanax XR) 0.5 MG TAB.ER.24H 1 TAB PO Q12 PRN ANXIETY Atorvastatin Calcium (Lipitor) 40 MG TABLET 1 TAB PO DAILY CHOLESTEROL ( Reported) Gabapentin 600 MG TABLET 2 TAB PO TID NERVE PAIN (Reported) Ibuprofen 600 MG TABLET 1 TAB PO TID PRN PAIN with food Lisinopril 20 MG TABLET 1 TAB PO DAILY BP (Reported) Meloxicam (Mobic) 15 MG TABLET 1 TAB PO DAILY PRN PAIN Multivitamin (Multi-Day Vitamins) 1 EACH TABLET 1 TAB PO DAILY SUPPLEMENT ( Reported) Oxycodone HCl/Acetaminophen (Percocet 5-325 MG Tablet) 5 MG-325 MG TABLET 1 TAB PO 4XDP PRN PAIN TEN...[id number] Paroxetine HCl 40 MG TABLET 1 TAB PO DAILY MENTAL HEALTH (Reported) Trazodone HCl 300 MG TABLET 1 TAB PO QPM PRN SLEEP (Reported) Zolpidem Tartrate 10 MG TABLET 1 TAB PO QPM PRN SLEEP (Reported) Triage Note: TRIAGE: PT BIBA FROM IOP C/C L C/P WITH RADIATION TO ARM. ONSET APPROX 12:15. STATES HE GOT DIZZY, SWEATY & HOT W/ONSET OF PAIN. STATES "FEELS LIKE AN ELEPHANT SITTING" ON HIS CHEST. REPORTS UNDER A LOT OF STRESS LATELY. EMS REPORTED PT WAS BEING TREATED FOR PROSTATE CANCER, THAT HE HAD FINISHED RADIATION SAT AND MAY NEED CHEMO. ALSO HAS HX OF CANCER TO LLE REQUIRING AKA. GROWTH ON TESTICLES, NOTICED SAME SATURDAY, SEEN HERE IN ED FOR SAME, REFERRED TO UROLOGY. STATES WAS UNABLE TO MAKE APPT YET, "MY DOCTORS ARE AWAY" Triage Nurses Notes Reviewed? yes Onset: Just prior to arrival Duration: minute(s):, constant, continues in ED Timing: recent history Location: central Radiation: arms Activities at Onset: emotional stress Prior Chest Pain/Card Workup: no prior chest pain Nitro Today/Relief: no nitro taken today Aspirin Today: no aspirin today Associated Symptoms: diaphoresis HPI: Prior to admission patient was at care developed heavy substernal chest pain radiating to left arm associated with diaphoresis increased anxiety. He denies fever chills nausea vomiting diarrhea abdominal pain shortness of breath dysuria headache rash bleeding. Past History Travel History Traveled to [place] past 21 day No Medical History Any Pertinent Medical History? 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 Hx Contributory? Yes Review of Systems Review of Systems Constitutional: Reports: see HPI, diaphoresis. EENTM: Reports: no symptoms. Respiratory: Reports: no symptoms. Cardiovascular: Reports: see HPI, chest pain. GI: Reports: no symptoms. Genitourinary: Reports: no symptoms. Musculoskeletal: Reports: no symptoms. Skin: Reports: no symptoms. Neurological/Psychological: Reports: no symptoms. Hematologic/Endocrine: Reports: no symptoms. Immunologic/Allergic: Reports: no symptoms. All Other Systems: Reviewed and Negative Physical Exam Physical Exam General Appearance: well developed/nourished, alert, awake, anxious, severe distress Head: atraumatic, normal appearance Eyes: Bilateral: normal appearance, PERRL, EOMI. Ears, Nose, Throat: normal pharynx, normal ENT inspection, hearing grossly normal Neck: normal inspection, supple, full range of motion, no midline tenderness Respiratory: normal breath sounds, chest non-tender, no respiratory distress, quiet respiration, lungs clear Cardiovascular: regular rate/rhythm, normal peripheral pulses, norml femoral pulses equa Peripheral Pulses: 4+ carotid (R), 4+ carotid (L) Gastrointestinal: normal bowel sounds, soft, non-tender, no organomegaly Back: normal inspection, normal range of motion, no vertebral tenderness Extremities: normal capillary refill, normal range of motion, no edema, no ligament instability, L AKA Neurologic/Psych: no motor/sensory deficits, awake, alert, oriented x 3, 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 Skin: intact, normal color, warm/dry Lymphatic: no anterior cervical solis Core Measures ACS in differential dx? No Severe Sepsis Present: No Septic Shock Present: No Progress Differential Diagnosis: AMI, hyperkalemia, hypovolemia, musculoskeletal pain Plan of Care: Orders Procedure Date/time Status TROPONIN LEVEL 11/21 1320 Complete COMPREHENSIVE METABOLIC PANEL 11/21 1320 Complete CBC WITHOUT DIFFERENTIAL 11/21 1320 Complete EKG 11/21 1257 Active Laboratory Tests 11/21/16 1340: Anion Gap 7, Estimated GFR 44 L, BUN/Creatinine Ratio 19.4, Glucose 100 H, Calcium 9.9, Total Bilirubin 0.5, AST 29, ALT 59, Alkaline Phosphatase 51, Troponin I < 0.01, Total Protein 6.6, Albumin 3.9, Globulin 2.7, Albumin/ Globulin Ratio 1.4, CBC w Diff NO MAN DIFF REQ, RBC 4.39 L, MCV 83.4, MCH 27.0, RDW 15.4 H, MPV 8.9, Gran % 76.5 H, Lymphocytes % 16.0 L, Monocytes % 6.5, Eosinophils % 0.9, Basophils % 0.1, Absolute Granulocytes 4.6, Absolute Lymphocytes 1.0 L, Absolute Monocytes 0.4, Absolute Eosinophils 0.1, Absolute Basophils 0, PUBS MCHC 32.4 L Diagnostic Imaging: Viewed by Me: Radiology Read. Discussed w/RAD: Radiology Read. CXR Impression: no acute abnormality Initial ED EKG: normal axis, normal intervals, normal p-waves, normal QRS complex, normal sinus rhythm, no ST T wave changes Prior EKG: unchanged Rhythm Strip: normal sinus rhythm Comments: Patient became upset due to lack of opiate administration for pain, repeat troponin and EKG suggested. He declined additional diagnostics. Departure Departure Time of Disposition: 1513 Disposition: LEFT AGAINST MEDICAL ADVICE Condition: Stable Clinical Impression Primary Impression: Chest pain syndrome Referrals: KELLI SILVA MD (PCP/Family) Departure Forms: General Discharge Information Critical Care Note Critical Care Note Critical Care Time: non-applicable
[2016-11-21 13:58] LABS: ABSOLUTE BASOPHIL COUNT 0 /CUMM (0.0-0.2); ABSOLUTE EOSINOPHIL COUNT 0.1 /CUMM (0.0-0.7); ABSOLUTE GRANULOCYTE CT 4.6 /CUMM (1.4-6.5); ABSOLUTE MONOCYTE COUNT 0.4 /CUMM (0.10-0.60); BASOPHIL % 0.1 % (0.0-2.0); EOSINOPHIL % 0.9 % (0-5); GRANULOCYTE % 76.5 % (42.2-75.2); HEMATOCRIT 36.6 % (42-52); MEAN CORPUSCULAR HGB CONC 32.4 G/DL (33.0-37.0); MEAN CORPUSCULAR VOLUME 83.4 FL (80.0-94.0); MEAN PLATELET VOLUME 8.9 FL (7.4-10.4); PLATELET COUNT 160 /CUMM (130-400); RBC DISTRIBUTION WIDTH 15.4 % (11.5-14.5); RED BLOOD CELL CT 4.39 /CUMM (4.70-6.10); WHITE BLOOD CELL COUNT 6.1 /CUMM (4.8-10.8)
--- NOTE | 2016-11-21 14:14 | RADIOLOGY REPORT ---
EXAMINATION: XR PORTABLE CHEST CLINICAL INFORMATION: Chest pain. COMPARISON: Chest x-ray 09/15/2016. TECHNIQUE: Portable AP upright view of the chest was obtained. FINDINGS: The lung thorpe are well moderately well-expanded. They appear clear with no focal consolidation. The cardiac silhouette is normal. There are no pleural effusions or pneumothorax. Mild bronchial wall thickening history demonstrated. The central pulmonary vasculature is normal. The hilar regions appear normal. There are no acute osseous findings. IMPRESSION: 1. The lungs are moderately well-expanded. 2. There is thickening of the bronchial verdugo, consistent with bronchitis. 3. There are no areas of focal consolidation.
== END 2016-11-21 15:22 | disposition left against medical advice (07) ==
LOC: ERH 12:56
PROVIDERS: Emergency Medicine
DX: R07.1 Chest pain on breathing (principal)
CPT/HCPCS: 93005; 93010; 96374; 96375; J0131; J1885

== ENCOUNTER 2017-09-24 01:14 | Inpatient (IN) | payer OTHER ==
[~2017-09-24] VITALS: Ht 170.2 cm; Wt 88.5 kg
[~2017-09-24 01:14] MED LIST changes: +ALEVE220 M1 PO; +AMBIEN10 M1 PO; +LISINOPRIL40 M1 PO; +MULTI-DAY PLUS1 EAC1 PO; -MULTI-DAY VITA1 EACH PO
[2017-09-24 12:52] LABS: ABSOLUTE BASOPHIL COUNT 0 /CUMM (0.0-0.2); ABSOLUTE EOSINOPHIL COUNT 0.1 /CUMM (0.0-0.7); ABSOLUTE GRANULOCYTE CT 3.9 /CUMM (1.4-6.5); ABSOLUTE LYMPH COUNT 1.1 /CUMM (1.2-3.4); ABSOLUTE MONOCYTE COUNT 0.4 /CUMM (0.10-0.60); BASOPHIL % 0.3 % (0.0-2.0); GRANULOCYTE % 70.8 % (42.2-75.2); HEMATOCRIT 30.4 % (42-52); MEAN CORPUSCULAR HGB 26.2 PG (27.0-31.0); MEAN CORPUSCULAR HGB CONC 32.4 G/DL (33.0-37.0); MEAN CORPUSCULAR VOLUME 80.7 FL (80.0-94.0); MEAN PLATELET VOLUME 8.8 FL (7.4-10.4); PLATELET COUNT 166 /CUMM (130-400); RBC DISTRIBUTION WIDTH 14.4 % (11.5-14.5); RED BLOOD CELL CT 3.76 /CUMM (4.70-6.10); WHITE BLOOD CELL COUNT 5.6 /CUMM (4.8-10.8)
--- NOTE | 2017-09-24 13:46 | Operative Report ---
Operative/Inv Procedure Report Surgery Date: 09/24/17 Name of Procedure: Right scrotal exploration. Right inguinal orchiectomy/radical. Pre-Operative Diagnosis: Right testicular mass, chronic right orchialgia Post-Operative Diagnosis: . 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 Timeout was performed, with the pt. awake, in order to confirm the patient's identity, planned surgery, laterality, anesthesia, antibiotics, and other important perioperative information. The patient was then anesthetized, and placed in frogleg position. He was then draped and prepped in the usual surgical fashion. A 3 cm incisions were made above the internal ring in oblique fashion on the right groin. The incision was carried down through the ulises's fascia to the level of the inguinal canal roof. The roof of the inguinal canal was opened, including the external ring, using a 15 blade knife. Blunt and sharp dissection was performed in order to expose and isolate the right inguinal cord, and the genitofemoral nerve. The genitofemoral nerve was gently retracted medially using a vascular rubber band to protect it. The internal ring was identified along with the vas deferens on the left side. Upon examination, the right testicle was atrophic with a posterior complex hemorrhagic appearing mass incorporating the head and body of the epididymis. Gentle dissection resulted in significant bleeding, therefore I felt it was safest, and best, as the patient had requested, to proceed with the orchiectomy. The vas deferens was clamped with 2 clamps and incised between the 2 Beronica clamps using Bovie cautery. 0 silk stitch was used to tie the vas deferens off from the proximal cord. The left testicular cord was then bisected using Beronica clamps, and each segment was doubly clamped, and then transected using Bovie cautery. Both stumps were suture ligated using 0 silk suture. The right testicle was then gently extruded by inverting the scrotum into the surgical field. Once the testicle was extracted through the incision, the gubernaculum was then transected using Bovie cautery in order to release the testicle and cord from the scrotal skin. Once the testicle and cord were released they were sent to pathology. THe entire area was copiously irrigated with vancomycin solution and then dried. Cauterization using Bovie cautery was performed in order to obtain good hemostasis. The ilioinguinal nerve was re- placed into its anatomic position, and the roof of the inguinal canal was then closed using 2-0 Vicryl running stitch, and re-forming in the external ring. The incision Ulises's fascia was reapproximated using interrupted 2-0 Vicryl sutures. Once again copious irrigation with sterile water was performed. Into the wound and dried. The skin was then closed using 4-0 Monocryl subcuticular stitch. Dermabond and sterile gauze with Tegaderm was used to the skin incision. All sponge needle and instrument counts were correct at the end of the case. The patient tolerated the procedure well, and was then taken to the recovery room in satisfactory condition. He will be discharged home with pain medication , antibiotics, and postoperative instructions. He is to follow up in 2 weeks' time. Discharge Disposition: PACU Additional Comments: pt for 23 hr obs. due to severe post-op pain. required IV narcotics for moderate control. CC: Reji Ferguson MD
[2017-09-24 14:23] VITALS: BP 140/78
[2017-09-24 17:09] VITALS: BP 160/80
[2017-09-24 19:00] VITALS: BP 120/90
[2017-09-24 22:00] VITALS: BP 135/80
[2017-09-24 22:38] VITALS: BP 148/72
[2017-09-25] VITALS (13 sets, daily range): BP systolic 104–150; BP diastolic 55–92
[2017-09-25 08:05] LABS: ABSOLUTE BASOPHIL COUNT 0 /CUMM (0.0-0.2); ABSOLUTE EOSINOPHIL COUNT 0.2 /CUMM (0.0-0.7); ABSOLUTE GRANULOCYTE CT 5.8 /CUMM (1.4-6.5); ABSOLUTE LYMPH COUNT 1.2 /CUMM (1.2-3.4); ABSOLUTE MONOCYTE COUNT 0.9 /CUMM (0.10-0.60); BASOPHIL % 0.2 % (0.0-2.0); EOSINOPHIL % 2.6 % (0-5); GRANULOCYTE % 70.9 % (42.2-75.2); HEMATOCRIT 31.6 % (42-52); MEAN CORPUSCULAR HGB 26.2 PG (27.0-31.0); MEAN CORPUSCULAR HGB CONC 32.5 G/DL (33.0-37.0); MEAN CORPUSCULAR VOLUME 80.7 FL (80.0-94.0); MEAN PLATELET VOLUME 9.7 FL (7.4-10.4); PLATELET COUNT 176 /CUMM (130-400); RBC DISTRIBUTION WIDTH 14.2 % (11.5-14.5); RED BLOOD CELL CT 3.92 /CUMM (4.70-6.10); WHITE BLOOD CELL COUNT 8.2 /CUMM (4.8-10.8)
--- NOTE | 2017-09-25 14:53 | Cons- Medical ---
General Information and HPI Consulting Request Date of Consult: 09/25/17 Requested By: Reji Ferguson MD Reason for Consult: Pain Management Source of Information: patient Exam Limitations: no limitations History of Present Illness: 62-year-old gentleman with history of prostate cancer in 2016, diverticulitis, colon resection was admitted to [facility] on September 24 by urology service for right scrotal exploration and right inguinal orchiectomy following a preoperative diagnosis of right testicular mass and chronic right orchialgia. Patient underwent the procedure on 09/24/2017 and ever since has been requesting pain medications for optimal pain control. It seems, patient has required 130 milligrams of IV morphine to pump during the last 24 hours. Additionally, patient has required doses of Toradol and Demerol. 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 Patient has had problems with pain medication dependence in the past. But this time patient states that his pain is severe, owing to the surgery. Other systems reviewed and he complains that has developed this new onset cold symptoms. Positive sick contacts-states nursing staff. New-onset cough without phlegm production. Allergies/Medications Allergies: Coded Allergies: latex (YIN WHERE IT COMES IN CONTACT 09/19/17) Home Med List: Atorvastatin Calcium (Lipitor) 40 MG TABLET 1 TAB PO QPM CHOLESTEROL ( Reported) Gabapentin 600 MG TABLET 2 TAB PO TID NERVE PAIN (Reported) Hydromorphone HCl (Dilaudid) 4 MG TABLET 1 TAB PO BID PRN PAIN (Reported) Lisinopril 40 MG TABLET 1 TAB PO QAM BP (Reported) Multivitamin-Min/Iron/FA/Vit K (Multi-Day Plus Minerals Tablet) 18 MG IRON-400 MCG-25 MCG TABLET 1 TAB PO DAILY SUPPLEMENT (Reported) Naproxen Sodium (Aleve) 220 MG CAPSULE 2 CAP PO DAILY PAIN/INFLAMMATION ( Reported) Trazodone HCl 300 MG TABLET 1 TAB PO QPM PRN SLEEP (Reported) Zolpidem Tartrate 10 MG TABLET 1 TAB PO QPM PRN SLEEP (Reported) Review of Systems Review of Systems Constitutional: Reports: see HPI. 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 Psychosocial History Who Do You Live With? Roommate Services at Home: None Primary Language: Maltese Smoking Status: Former Smoker Functional Ability Ambulation: Crutch Exam & Diagnostic Data Last 24 Hrs of Vital Signs/I&O Vital Signs Date Time Temp Pulse Resp B/P B/P Pulse O2 O2 Flow FiO2 Mean Ox Delivery Rate 09/25 1405 98.4 102 20 150/80 98 09/25 1200 99.0 88 18 146/82 09/25 1000 98.1 80 18 124/62 09/25 1000 99.0 88 18 146/82 93 Room Air 09/25 0800 98.8 86 18 140/80 09/25 0610 98.1 80 18 124/62 94 09/25 0403 98.6 89 18 126/78 95 09/25 0200 98.2 85 18 132/92 94 09/25 0000 98.4 75 18 138/76 92 09/24 2238 99.1 88 18 148/72 95 Room Air 09/24 2200 98.3 75 18 135/80 09/24 1900 98.5 67 18 120/90 09/24 1709 98.2 75 18 160/80 Intake & Output 09/25 1600 09/25 0800 09/25 0000 Intake Total 1395 1080 1649 Output Total 2100 600 200 Balance -424 995 2409 Intake, IV 775 600 649 Intake, Oral 329 830 1575 Number 1 Bowel Movements Output, Urine 2100 600 200 Physical Exam General Appearance: well developed/nourished, no apparent distress Ears, Nose, Throat: normal pharynx, normal ENT inspection Neck: normal inspection, supple Cardiovascular: regular rate/rhythm, edema Gastrointestinal: normal bowel sounds, soft Back: normal inspection, normal range of motion Extremities: normal inspection, normal capillary refill Last 24 Hrs of Labs/Julio: Laboratory Tests 09/25/17 0712: CBC w Diff NO MAN DIFF REQ, RBC 3.92 L, MCV 80.7, MCH 26.2 L, MCHC 32.5 L, RDW 14.2, MPV 9.7, Gran % 70.9, Lymphocytes % 15.1 L, Monocytes % 11.2 H, Eosinophils % 2.6, Basophils % 0.2, Absolute Granulocytes 5.8, Absolute Lymphocytes 1.2, Absolute Monocytes 0.9 H, Absolute Eosinophils 0.2, Absolute Basophils 0 Assessment/Plan Assessment/Plan 62-year-old gentleman admitted for right testicular mass, now status post right inguinal orchiectomy, medicine consult requested for pain control and management. Recommendations: 1. Increased Toradol dose to 30 mg every 6 hours [id number]. 2. Continue current pain management. If no improvement with current regimen, request pain management consult in the morning. 3. Rapid flu test. Copies To: Marty ANDERSON,Reji; Paco ANDERSON,Shashi Consult Acknowledgment - Thank you for your consult request.
--- NOTE | 2017-09-25 14:58 | ULTRASOUND REPORT ---
EXAMINATION: US RETROPERITONEAL COMPLETE (RENAL) CLINICAL INFORMATION: Hematuria. COMPARISON: CT scan of the abdomen and pelvis dated 11/26/2016. TECHNIQUE: Real-time imaging of the kidneys and bladder. The study is limited, the patient was unable to turn onto the right side secondary to pain from recent surgery. The patient was also unable to breath-hold. FINDINGS: RIGHT KIDNEY: 11.1 x 5.9 x 5.1 cm (SAG x AP x TRV). The kidney is normal in size, contour, and echogenicity. Renal cortical thickness is normal. No calculi are noted; a an anechoic structure is present in the cortex of the mid right kidney, measuring 1.4 x 1.0 x 1.1 cm in size.. No hydronephrosis. LEFT KIDNEY: 11.0 x 6.5 x 6.0 cm (SAG x AP x TRV), there is limited visualization of the left kidney therefore the size of evaluation is unlikely to be accurate. The kidney is normal in size, contour, and echogenicity. Renal cortical thickness is normal. No calculi or focal parenchymal lesions. No hydronephrosis. BLADDER: Well-distended and normal. Bilateral ureteral jets are not demonstrated. Prevoid bladder volume is 300 mL. Postvoid bladder volume is 176 mL. IMPRESSION: The exam was technically limited due to patient inability to remain motionless or move as required for imaging. 1. Simple right renal cyst as described. . 2. Abnormal post void residual bladder volume.
--- NOTE | 2017-09-25 15:16 | RADIOLOGY REPORT ---
EXAMINATION: XR KIDNEYS, URETER, BLADDER CLINICAL INDICATION: Hematuria. COMPARISON: CT scan of the abdomen and pelvis dated 09/12/2016. TECHNIQUE: AP view of the abdomen. FINDINGS: A small calcific densities projecting over the left renal shadow measuring 3 mm in size. No additional calcific densities are identified. Incidental note is made of a bowel anastomosis present in the central pelvic region as well as small vascular calcifications. The bowel gas pattern is nonobstructed. IMPRESSION: 1. 3 mm calcific density projecting over the lower pole the left kidney. 2. Nonobstructive bowel gas pattern.
[2017-09-26 01:32] VITALS: BP 122/60
[2017-09-26 04:03] VITALS: BP 128/78
[2017-09-26 06:03] VITALS: BP 122/78
--- NOTE | 2017-09-26 11:22 | PN- Att Addend ---
Attending Addendum Attending Brief Note Patient still in a lot of pain, some swelling and hematoma in the surgical area Vital signs are stable no fever and no other changes on physical if continue present treatment and follow Dr. Ferguson's recommendations Intake & Output 09/26 1600 09/260 09/25 1600 09/25 1600 09/24 040 Intake Total 992 322 7005 1649 Output Total 7290 513 0678 350 Balance -900 -100 -75 1299 Intake, IV 300 1375 649 Intake, Oral 034 705 5142 1000 Number 1 Bowel Movements Output, Urine 5871 214 3595 350 Patient 195 lb Weight Laboratory Tests 09/25/17 0712: CBC w Diff NO MAN DIFF REQ, RBC 3.92 L, MCV 80.7, MCH 26.2 L, MCHC 32.5 L, RDW 14.2, MPV 9.7, Gran % 70.9, Lymphocytes % 15.1 L, Monocytes % 11.2 H, Eosinophils % 2.6, Basophils % 0.2, Absolute Granulocytes 5.8, Absolute Lymphocytes 1.2, Absolute Monocytes 0.9 H, Absolute Eosinophils 0.2, Absolute Basophils 0 09/24/17 1245: Anion Gap 8, Estimated GFR > 60, BUN/Creatinine Ratio 28.9 H, Glucose 94, Calcium 6.8 L, CBC w Diff NO MAN DIFF REQ, RBC 3.76 L, MCV 80.7, MCH 26.2 L, MCHC 32.4 L, RDW 14.4, MPV 8.8, Gran % 70.8, Lymphocytes % 19.1 L, Monocytes % 7.8, Eosinophils % 2.0, Basophils % 0.3, Absolute Granulocytes 3.9, Absolute Lymphocytes 1.1 L, Absolute Monocytes 0.4, Absolute Eosinophils 0.1, Absolute Basophils 0 Microbiology 09/25 1929 NASOPHARYN: Influenza Virus A & B Rapid Smear - COMP Microbiology 09/25 1929 NASOPHARYN: Influenza Virus A & B Rapid Smear - COMP Vital Signs Date Time Temp Pulse Resp B/P B/P Pulse O2 O2 Flow FiO2 Mean Ox Delivery Rate 09/26 06 98.6 67 20 122/78 95 Room Air 09/26 0403 98.7 71 20 128/78 96 Room Air 09/26 0132 98.6 72 20 122/60 96 Room Air 09/25 2339 98.9 73 18 104/55 97 Room Air 09/25 1800 98.6 80 18 138/72 09/25 1800 98.6 80 18 138/72 96 Room Air 09/25 1753 98.8 82 18 120/70 96 09/25 1600 98.8 82 18 120/70 09/25 1405 98.4 102 20 150/80 98 09/25 1400 98.4 102 20 150/80 09/25 1200 99.0 88 18 146/82 09/25 1200 99.0 88 18 146/82 97 Room Air
[2017-09-26 12:00] VITALS: BP 132/92
--- NOTE | 2017-09-26 14:05 | ED PSYCHIATRIST/APRN CONSULT ---
Psychiatrist/SENIOR TECHNICAL BUSINESS ANALYST ED Consult Assessment and Plan: CC: "I'm depressed. 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 He has required meperidine 50 mg IM X 6 doses, as well as a morphine sulfate IV drip, amount unknown, in the last [address] SCORER SINGLE: 09/16/17 hydromorphone 2 mg #25 for 6 days 09/09/17 hydromorphone 2 mg #20 for 5 days 09/09/17 zolpidem 10 mg #30 for 30 days 08/13/17 Percocet 5/325 mg #12 for 3 days 08/07/17 zolpidem 10 mg #30 for 30 days 01/10/17 zolpidem 10 mg #30 for 30 days 12/26/16 hydromorphone 2 mg #25 for 6 days PSocHx: The patient is a recovering alcoholic for 21 years, after a rehab at [facility] and [facility] at [facility]. He has more recently participated in the [facility] IOP program, but moved to [place] with a woman before completion of the program. He has now returned to [place] and is currently living with his parents. His spouse in 2008, and nine months later, he was diagnosed with bone cancer in his left leg, which was amputated AKA, with one revision. He has a son living in [place], where he had lived when his was alive, and a daughter in [place]. He is close to both children and has 2 grandchildren. MSE: Alert, oriented pleasant and conversational. Speech is normal in volume and rate, slightly pressured. Denies racing thoughts. Denies AH, VH, and presents no catherine delusions. He denies SI, HI, or history of suicide attempt. He denies hopelessness, and guilt feelings; endorses helplessness and worthlessness. He denies the use of alcohol or street drugs, including cannabis. Impression: The patient reports a series of setbacks, including the current medical illness, which he thinks may mean the end of sexual activity. He also has a history of major depressive disorder, and possible dysfunctional grieving. He is in agreement to come to [facility] for an intake appointment. In the past, he has tolerated Paxil, Vistaril and trazodone. He had been on fluoxetine years ago, reason for discontinuation not evaluated. He also was on olanzapine, he states for depression. He is not currently on psychotropic medications. The patient enjoyed the IOP, but prefers individual therapy and to not participate in group therapy, other than AA. The patient is not suicidal, psychotic, nor delirious. He is clear for discharge form a psychiatric viewpoint. Diagnosis: F32.2 MDD, single episode, severe, with anxious distress. Plan: 1. No medication intervention for depression, at this time. 2. The patient has an intake appointment at [facility], on Sunday, November 05, 2017, at 1:15 PM with ervin Donahue [address] [place], [place] [address], [place], . He is to bring his photo ID and insurance card.
[2017-09-26 20:14] VITALS: BP 128/72
[2017-09-26 23:34] VITALS: BP 130/80
[2017-09-27 03:51] VITALS: BP 132/76
[2017-09-27] MEDS ORDERED: ONDANSETRON4 MG/2 M3 PO (07:03)
[2017-09-27] MEDS ORDERED: DOCUSATE SODIU100 M3 PO (07:03)
[2017-09-27] MEDS ORDERED: PERCOCET 10-321 EACH PO (07:24)
[2017-09-27] MEDS ORDERED: KETOROLAC30 MG/1 M3 PO (07:24)
[2017-09-27 08:00] VITALS: BP 138/84
--- NOTE | 2017-09-27 11:11 | PN- Att Addend ---
Attending Addendum Attending Brief Note Patient still having some pain. Otherwise he looks better. Dr. Ferguson saw the patient, was cleared for discharge him I agree, on by mouth analgesics to follow with Dr. Ferguson and myself as an outpatient Intake & Output 09/27 1600 09/270 09/26 1600 09/26 0400 09/25 1600 09/25 040 Intake Total 6855 481 9971 800 2475 1649 Output Total 957 581 8412 900 2550 350 Balance 480 105 -50 -100 -75 1299 Intake, IV 600 979 738 4290 649 Intake, Oral 096 325 8115 800 1100 1000 Number 1 Bowel Movements Output, Urine 638 790 8939 900 2550 350 Patient 195 lb Weight Laboratory Tests 09/25/17 0712: CBC w Diff NO MAN DIFF REQ, RBC 3.92 L, MCV 80.7, MCH 26.2 L, MCHC 32.5 L, RDW 14.2, MPV 9.7, Gran % 70.9, Lymphocytes % 15.1 L, Monocytes % 11.2 H, Eosinophils % 2.6, Basophils % 0.2, Absolute Granulocytes 5.8, Absolute Lymphocytes 1.2, Absolute Monocytes 0.9 H, Absolute Eosinophils 0.2, Absolute Basophils 0 09/24/17 1245: Anion Gap 8, Estimated GFR > 60, BUN/Creatinine Ratio 28.9 H, Glucose 94, Calcium 6.8 L, CBC w Diff NO MAN DIFF REQ, RBC 3.76 L, MCV 80.7, MCH 26.2 L, MCHC 32.4 L, RDW 14.4, MPV 8.8, Gran % 70.8, Lymphocytes % 19.1 L, Monocytes % 7.8, Eosinophils % 2.0, Basophils % 0.3, Absolute Granulocytes 3.9, Absolute Lymphocytes 1.1 L, Absolute Monocytes 0.4, Absolute Eosinophils 0.1, Absolute Basophils 0 Microbiology 09/25 1929 NASOPHARYN: Influenza Virus A & B Rapid Smear - COMP Microbiology 09/25 1929 NASOPHARYN: Influenza Virus A & B Rapid Smear - COMP Vital Signs Date Time Temp Pulse Resp B/P B/P Pulse O2 O2 Flow FiO2 Mean Ox Delivery Rate 09/27 0800 98.6 82 18 138/84 98 Room Air 09/27 0351 98.8 76 20 132/76 94 Room Air 09/26 2334 98.0 79 20 130/80 95 Room Air 09/26 2013 98.6 78 20 128/72 97 Room Air 09/26 1200 98.3 70 18 132/92 96 Room Air
== END 2017-09-27 13:00 | DRG 711 ==
LOC: STS 01:14 → PACUH 10:00 → STS 10:00 → 2NB 10:00 → ENRESERV 12:20 → ENTRNSPT 13:38 → EDTRNSPT 14:00 → EDTRNSPTSTS 14:00 → PACUH 14:09 → 2NB 14:09 → CMPTRNSPT 14:25 → 2NB 09-26 16:27 → PACUH 09-26 17:20 → 2NB 09-26 17:20 → ENPENDDIS 09-27 08:51 → 2NB 09-27 11:35 → ENTRNSPT 09-27 12:53 → EDTRNSPT 09-27 12:58 → EDTRNSPTSTS 09-27 12:58 → 2NB 09-27 13:00 → CMPTRNSPT 09-27 13:08
PROVIDERS: Urology
PROC: 0VT90ZZ Resection of Right Testis, Open Approach (ICD-10-PCS; principal; 2017-09-24)
DX: N50.9 Disorder of male genital organs, unspecified (principal); F32.2 Major depressive disorder, single episode, severe without psychotic features; Z89.612 Acquired absence of left leg above knee; G89.18 Other acute postprocedural pain; Z85.46 Personal history of malignant neoplasm of prostate; I10 Essential (primary) hypertension; E78.5 Hyperlipidemia, unspecified; Z90.49 Acquired absence of other specified parts of digestive tract
CPT/HCPCS: 2NASP; 6040; 36415; 74018; 76775; 87804; 87804-59; 88305; 99232; G0378; J0131; J0690; J1885; J2001; J2175; J2405; J7042

== ENCOUNTER 2018-02-11 12:42 | Emergency (ER) | payer OTHER ==
[~2018-02-11 12:42] MED LIST changes: +DOCUSATE SODIU100 M3 PO; +KETOROLAC30 MG/1 M3 PO; +ONDANSETRON4 MG/2 M3 PO; -ZOLPIDEM TARTRA10 M1 PO
[2018-02-11 13:22] LABS: ABSOLUTE BASOPHIL COUNT 0 /CUMM (0.0-0.2); ABSOLUTE EOSINOPHIL COUNT 0.4 /CUMM (0.0-0.7); ABSOLUTE GRANULOCYTE CT 6.3 /CUMM (1.4-6.5); ABSOLUTE LYMPH COUNT 1.3 /CUMM (1.2-3.4); ABSOLUTE MONOCYTE COUNT 0.5 /CUMM (0.10-0.60); BASOPHIL % 0.3 % (0.0-2.0); EOSINOPHIL % 4.1 % (0-5); GRANULOCYTE % 74.8 % (42.2-75.2); HEMATOCRIT 31.4 % (42-52); MEAN CORPUSCULAR HGB 27.1 PG (27.0-31.0); MEAN CORPUSCULAR HGB CONC 32.6 G/DL (33.0-37.0); MEAN PLATELET VOLUME 9.3 FL (7.4-10.4); PLATELET COUNT 311 /CUMM (130-400); RBC DISTRIBUTION WIDTH 14.5 % (11.5-14.5); RED BLOOD CELL CT 3.78 /CUMM (4.70-6.10); WHITE BLOOD CELL COUNT 8.5 /CUMM (4.8-10.8)
--- NOTE | 2018-02-11 14:04 | ED CARDIAC/CP/PALPITATIONS ---
See Addendum History of Present Illness General Chief Complaint: Chest Pain Stated Complaint: CP Source: patient Exam Limitations: no limitations Vital Signs & Intake/Output Vital Signs & Intake/Output Vital Signs Date Time Temp Pulse Resp B/P B/P Pulse O2 O2 Flow FiO2 Mean Ox Delivery Rate 02/11 1729 98.2 76 18 144/76 99 Room Air 02/11 1636 98.7 74 18 162/110 97 02/11 1440 62 192/80 02/11 1440 98 Room Air 02/11 1421 98.2 72 18 176/86 98 Room Air 02/11 1417 74.0 180/98 02/11 1247 98.6 76 18 177/98 98 Room Air Allergies Coded Allergies: No Known Allergies (02/11/18) Reconcile Medications Amiodarone HCl 200 MG TABLET 1 TAB PO BID HEART (Reported) Atorvastatin Calcium (Lipitor) 40 MG TABLET 1 TAB PO QPM CHOLESTEROL ( Reported) Gabapentin 600 MG TABLET 2 TAB PO TID NERVE PAIN (Reported) Lisinopril 40 MG TABLET 1 TAB PO QAM BP (Reported) Metoprolol Tartrate 50 MG TABLET 1 TAB PO BID HEART (Reported) Multivitamin-Min/Iron/FA/Vit K (Multi-Day Plus Minerals Tablet) 18 MG IRON-400 MCG-25 MCG TABLET 1 TAB PO DAILY SUPPLEMENT (Reported) Naproxen Sodium (Aleve) 220 MG CAPSULE 2 CAP PO DAILY PAIN/INFLAMMATION ( Reported) Risperidone 1 MG TABLET 1 TAB PO BID MENTAL HEALTH (Reported) Trazodone HCl 300 MG TABLET 1 TAB PO QPM PRN SLEEP (Reported) Zolpidem Tartrate (Ambien) 10 MG TABLET 1 TAB PO QPM sleep (Reported) Triage Note: 62 YO MALE TO TRIAGE FOR EVAL OF CHEST PAIN THAT STARTED THIS AM. STATES HX OF OPEN HEART SURGERY IN DECEMBER 2017 AT [facility]. PT STATES HIS VISITING NURSE CAME THIS AM AND HIS BLOOD PRESSURE WAS HIGH, STATES HE ALSO HAD A BLOODY NOSE THIS AM. STATES +SOB. DENIES NV. SKIN WARM/DRY. Triage Nurses Notes Reviewed? yes HPI: Patient presents for evaluation of a substernal chest pressure that began this morning. His visiting nurse noted that his blood pressure was elevated. He initially declined to go to the emergency department but decided he needed an evaluation. He is describing a squeezing pressure substernal pain that gets worse with deep inspiration. He denies any associated dyspnea jaw pain are pain or diaphoresis. He states he does however get some dyspnea on exertion. He had bypass surgery on January 18. Past History Travel History Traveled to [place] past 21 day No Medical History Any Pertinent Medical History? 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 Hx Contributory? No Review of Systems Review of Systems Constitutional: Reports: no symptoms. EENTM: Reports: no symptoms. Respiratory: Reports: no symptoms. Cardiovascular: Reports: chest pain. GI: Reports: no symptoms. Genitourinary: Reports: no symptoms. Musculoskeletal: Reports: no symptoms. Skin: Reports: no symptoms. Neurological/Psychological: Reports: no symptoms. Hematologic/Endocrine: Reports: no symptoms. Immunologic/Allergic: Reports: no symptoms. All Other Systems: Reviewed and Negative Physical Exam Physical Exam Cardiovascular: SEE BELOW Comments: Gen.: Well-nourished, well-developed, no acute respiratory distress. Head: Normocephalic, atraumatic. Eyes: Normal inspection bilaterally Ears: Normal inspection bilaterally Nose: Normal inspection Throat/mouth : Moist mucosa Neck: Supple, full range of motion, no goiter Heart: Regular rate and rhythm, no murmurs rubs or gallops Lungs: Clear to auscultation bilaterally with normal air entry Chest: Sternal chest pain that reproduces the pain of the chief complaint Back: Normal range of motion Abdomen: Soft, nontender, nondistended, normal bowel sounds Extremities: Normal range of motion grossly, equal radial pulses, no cyanosis, calves nontender Neurologic: Cranial nerves grossly intact, speech is clear Skin: warm and dry Psychiatric: Calm, cooperative, conversant, no apparent delusions or hallucinations Core Measures ACS in differential dx? No CVA/TIA Diagnosis No Sepsis Present: No Sepsis Focused Exam Completed? No Progress Differential Diagnosis: AMI, aortic dissection, CHF/pulm edema, costochondritis, musculoskeletal pain, pericarditis, unstable angina Plan of Care: Orders Procedure Date/time Status TROPONIN LEVEL 02/11 1711 Complete EKG 02/11 1711 Active EKG 02/11 1403 Active TROPONIN LEVEL 02/11 1246 Complete COMPREHENSIVE METABOLIC PANEL 02/11 1246 Complete CBC WITHOUT DIFFERENTIAL 02/11 1246 Complete EKG 02/11 1243 Active Current Medications Sig/Anthony Start time Last Medication Dose Stop Time Status Admin Morphine Sulfate 6 MG ONCE ONE 02/11 183 UNVr (Morphine) 02/11 183 Laboratory Tests 02/11/18 1748: Troponin I 0.01 02/11/18 1303: Anion Gap 11, Estimated GFR 56 L, BUN/Creatinine Ratio 16.9, Glucose 136 H, Calcium 8.9, Total Bilirubin 0.5, AST 15 L, ALT 25, Alkaline Phosphatase 87, Troponin I < 0.01, Total Protein 6.1 L, Albumin 3.2 L, Globulin 2.9, Albumin/ Globulin Ratio 1.1, CBC w Diff NO MAN DIFF REQ, RBC 3.78 L, MCV 83.0, MCH 27.1, MCHC 32.6 L, RDW 14.5, MPV 9.3, Gran % 74.8, Lymphocytes % 15.0 L, Monocytes % 5.8, Eosinophils % 4.1, Basophils % 0.3, Absolute Granulocytes 6.3, Absolute Lymphocytes 1.3, Absolute Monocytes 0.5, Absolute Eosinophils 0.4, Absolute Basophils 0 CXR Impression: PATIENT: TAYLOR MCCABE JR PRESENT AGE: 62 PATIENT ACCOUNT NO: [id number] : 56 LOCATION: [facility] ORDERING PHYSICIAN: Lobo Leon MD SERVICE DATE: 02/11/18 EXAM TYPE: RAD - XRY-PORTABLE CHEST XRAY EXAMINATION: XR PORTABLE CHEST CLINICAL INFORMATION: Status post CABG with substernal chest pain. COMPARISON: Chest x-ray 01/21/2017. TECHNIQUE: Portable frontal view of the chest was obtained. FINDINGS: Median sternotomy wires. Surgical clips project over the mediastinum. There is central vascular congestion and there are a few Tresa B lines within the periphery of the left lung suggesting mild interstitial edema. Cardiac silhouette is enlarged. There are no acute osseous findings. IMPRESSION: There is central vascular congestion and there are a few Tresa B lines within the periphery of the left lung suggesting mild interstitial edema. Cardiac silhouette is enlarged. DICTATED BY: Lobo Larson MD DATE/TIME DICTATED:02/11/181447 HAND SEWER:TOMMIE DATE/TIME TRANSCRIBED:02/11/181447 CONFIDENTIAL, DO NOT COPY WITHOUT APPROPRIATE AUTHORIZATION. <Electronically signed in Other Vendor System> SIGNED BY: Lobo Larson MD 02/11/18 4016 Initial ED EKG: NSR, rate (78), nonspecific ST T wave chg, LOSS OF CONVEXITY OF THE st SEGMENT COMPARED WITH PRIOR Prior EKG: changed Repeat EKG: unchanged (COMPARED TO INITIAL ED EKG) Comments: Patient has had a CABG since his most recent EKG showed is unclear if his ST segment changes currently reflect his surgery or an acute change. I'm attempting to contact Dr. Valentino his teacher resource. 02/11/2018 3:53:23 PM Taylor is resting comfortably at this point. His troponin is negative and I have received a more recent EKG from Dr. Valentino that this did not show the same loss of convexity of the ST segment as the 2 EKGs today. 02/11/2018 4:37:26 PM I have updated Dr. Antonio on patient's emergency department visit. He has requested consultation with Dr. Valentino to ascertain whether or not the patient should be admitted and if so to [facility]. I have updated Taylor on test results and he complains of chest pain that he states feels more like chest wall pain as opposed to cardiac pain. I have ordered morphine and Toradol. Patient's blood pressure is elevated and this will be rechecked after this round of medications. If necessary I will provide additional antihypertensive medications. 02/11/2018 6:31:27 PM patient's case discussed with Dr. Asif, including the EKG changes noted previously. He agrees that if the patient's repeat EKG and troponin levels are unchanged he can be followed up with as an outpatient. The patient in fact has an appointment with Dr. Valentino tomorrow. Departure Departure Disposition: HOME OR SELF CARE Condition: Stable Clinical Impression Primary Impression: Chest wall pain Secondary Impressions: Elevated blood pressure reading, Renal insufficiency Referrals: Shashi Antonio MD (PCP/Family) Additional Instructions: Continue your current medications and follow-up with Dr. Valentino tomorrow as scheduled. Return if any concerns or sudden worsening. Please note that there might be incidental findings in your evaluation that are unrelated to the current emergency department visit. Please notify your primary care doctor about this emergency department visit in order to obtain and review all of the testing performed so that these incidental findings can be monitored as needed. If you had an x-ray performed, please understand that some fractures or other findings may not be seen on the initial set of x-rays. If your symptoms persist you might need a repeat set of x-rays to check for such a fracture. If you had a laceration evaluated, please understand that foreign bodies such as glass or wood may not be visible to the naked eye or on plain x-rays. If the wound becomes red, swollen, increasingly more painful or if there is any drainage from the wound, please have it reevaluated by a physician for the possibility of a retained foreign body. If you're unable to follow up as outlined in the discharge instructions please return to the emergency department. Thank you for choosing the [facility] Emergency Department for your care. It was a pleasure to serve you today. Lobo Leon M.D. [facility] Departure Forms: Customer Survey General Discharge Information Critical Care Note Critical Care Note Critical Care Time: 30-74 min
[2018-02-11] MEDS ORDERED: RISPERIDONE1 M1 PO (14:53)
[2018-02-11] MEDS ORDERED: AMIODARONE HCL200 M2 PO (14:54)
[2018-02-11] MEDS ORDERED: METOPROLOL TART50 M1 PO (14:54)
--- NOTE | 2018-02-11 14:55 | RADIOLOGY REPORT ---
EXAMINATION: XR PORTABLE CHEST CLINICAL INFORMATION: Status post CABG with substernal chest pain. COMPARISON: Chest x-ray 01/21/2017. TECHNIQUE: Portable frontal view of the chest was obtained. FINDINGS: Median sternotomy wires. Surgical clips project over the mediastinum. There is central vascular congestion and there are a few Tresa B lines within the periphery of the left lung suggesting mild interstitial edema. Cardiac silhouette is enlarged. There are no acute osseous findings. IMPRESSION: There is central vascular congestion and there are a few Tresa B lines within the periphery of the left lung suggesting mild interstitial edema. Cardiac silhouette is enlarged.
[2018-02-11 19:13] VITALS: BP 158/90
--- NOTE | 2018-02-11 22:54 | Cons- Cardiology ---
General Information and HPI Consulting Request Date of Consult: 02/11/18 Requested By: Bryson Leon History of Present Illness: Mr. Jain is a 62 year old male with history of peripheral vascular disease and coronary artery disease s/p recent CABG perfomred toward the end of December. Today, this patient was noted to be hypertensive after a spontaneous nose bleed. He also noted a severe midsternal chest pain that was sharp and constant with some exacerbation by deep inhalation and manual palpation. He denies any chest pain similar to that experienced before his bypass. He denies shortness of breath, lightheadedness or palpitations. There are no new ECG changes and no rise in cardiac enzymes. Allergies/Medications Allergies: Coded Allergies: No Known Allergies (02/11/18) Home Med List: Amiodarone HCl 200 MG TABLET 1 TAB PO BID HEART (Reported) Atorvastatin Calcium (Lipitor) 40 MG TABLET 1 TAB PO QPM CHOLESTEROL ( Reported) Gabapentin 600 MG TABLET 2 TAB PO TID NERVE PAIN (Reported) Lisinopril 40 MG TABLET 1 TAB PO QAM BP (Reported) Metoprolol Tartrate 50 MG TABLET 1 TAB PO BID HEART (Reported) Multivitamin-Min/Iron/FA/Vit K (Multi-Day Plus Minerals Tablet) 18 MG IRON-400 MCG-25 MCG TABLET 1 TAB PO DAILY SUPPLEMENT (Reported) Naproxen Sodium (Aleve) 220 MG CAPSULE 2 CAP PO DAILY PAIN/INFLAMMATION ( Reported) Risperidone 1 MG TABLET 1 TAB PO BID MENTAL HEALTH (Reported) Trazodone HCl 300 MG TABLET 1 TAB PO QPM PRN SLEEP (Reported) Zolpidem Tartrate (Ambien) 10 MG TABLET 1 TAB PO QPM sleep (Reported) Review of Systems Review of Systems: A review of systems is unremarkable. 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 Psychosocial History Who Do You Live With? Roommate Services at Home: None Primary Language: Upper Sorbian Functional Ability Ambulation: Crutch Exam & Diagnostic Data Vital Signs and I&O Vital Signs Date Time Temp Pulse Resp B/P B/P Pulse O2 O2 Flow FiO2 Mean Ox Delivery Rate 02/11 1913 97.1 87 18 158/90 98 Room Air 02/11 1729 98.2 76 18 144/76 99 Room Air 02/11 1636 98.7 74 18 162/110 97 02/11 1440 62 192/80 02/11 1440 98 Room Air 02/11 1421 98.2 72 18 176/86 98 Room Air 02/11 1417 74.0 180/98 02/11 1247 98.6 76 18 177/98 98 Room Air Intake & Output 02/11 1600 02/11 0800 02/11 0000 02/10 1600 02/10 0800 02/10 0000 Intake Total 0 Output Total Balance 0 Intake, Oral 0 Physical Exam: General: WD/WN male in NAD; alert and oriented x 3 HEENT: NC/AT, PERRL, EOMI Neck: no JVD, no carotid bruits Heart: RRR w/o murmur Lungs: clear bilaterally Abdomen: soft, NT, +ve bowel sounds with a midline scar Extremities: left leg amputation, no edema Assessment/Plan Assessment/Plan * This patietn has atypical chest pain that is very suggestive of simple incisional pain rather that myocardial ischeia. He has ruled out for an NE by multiple sets of cardiac enzymes despite prolonged and ongoing chest pain. This patient can be discharged to home with a follow as an outpatient. Continue his usual cardiac medications. Consult Acknowledgment - Thank you for your consult request.
== END 2018-02-11 19:49 ==
LOC: ERH 12:42
PROVIDERS: Physician Assistant Medical
DX: R07.89 Other chest pain (principal); N28.9 Disorder of kidney and ureter, unspecified; I10 Essential (primary) hypertension
CPT/HCPCS: 71045; 93005; 93010; 96374; 96375; 96376; J1885; J3490